=== PATIENT | female | born 1970 | race Hispanic/Latino ===

== ENCOUNTER 2019-02-19 11:38 | Emergency (ER) | payer OTHER ==
--- NOTE | 2019-02-19 11:45 | Emergency Department Report ---
Blank Doc - Documentation Documentation: This is a 48-year-old female that presents with right mandible swelling and to othache. This initial assessment/diagnostic orders/clinical plan/treatment(s) is/are subject to change based on patient's health status, clinical progression and re- assessment by fellow clinical providers in the ED. Further treatment and workup at subsequent clinical providers discretion. Patient/guardians urged not to elope from the ED as their condition may be serious if not clinically assessed and managed. Initial orders include: 1- Patient sent to [facility] for further evaluation and treatment 2- labs
[2019-02-19 13:00] LABS: Basophils # (Auto) 0.1 K/mm3 (0.0-0.1); Basophils % (Auto) 0.9 % (0.0-1.8); Eosinophils # (Auto) 0.1 K/mm3 (0.0-0.4); Eosinophils % (Auto) 0.7 % (0.0-4.3); Hematocrit 40.9 % (30.3-42.9); Hemoglobin 13.7 gm/dl (10.1-14.3); Lymphocytes # (Auto) 1.6 K/mm3 (1.2-5.4); Lymphocytes % (Auto) 17.6 % (13.4-35.0); Mean Corpuscular HGB Conc 34 % (30-34); Mean Corpuscular Volume 87 fl (79-97); Monocytes # (Auto) 0.4 K/mm3 (0.0-0.8); Monocytes % (Auto) 4.3 % (0.0-7.3); Platelet Count 194 K/mm3 (140-440); Red Blood Count 4.68 M/mm3 (3.65-5.03); Red Cell Distribution Width 16.4 % (13.2-15.2)
[2019-02-19] MEDS ORDERED: TORADOL IV ONE (13:01)
--- NOTE | 2019-02-19 13:07 | Emergency Department Report ---
ED ENT HPI - General Chief complaint: Dental/Oral Stated complaint: ABSCESS Time Seen by Provider: 02/19/19 11:43 Source: patient Mode of arrival: Ambulatory Limitations: No Limitations - History of Present Illness Initial comments: 48-year-old female presents to ED with toothache 3 days. Patient complaining of pain to his lower right molar, with associated swelling to the right jaw. Denies fever. MD complaint: tooth pain -: days(s) (3) Location: tooth # (32) Severity: moderate Quality: aching Consistency: constant Improves with: none Worsens with: eating Context- Dental: history of dental caries Associated Symptoms: denies: fever - Related Data Previous Rx's Medication Instructions Recorded Last Taken Type Ibuprofen [Motrin 800 MG tab] 800 mg PO Q8HR PRN #20 tablet 07/23/16 Unknown Rx Azithromycin [Zithromax Z-ELAINE] 250 mg PO DAILY #6 tablet 10/07/18 Unknown Rx Benzonatate [Tessalon Perle] 100 mg PO Q8H PRN #20 capsule 10/07/18 Unknown Rx Ibuprofen [Motrin] 600 mg PO Q8H PRN #20 tablet 10/07/18 Unknown Rx Prednisone [predniSONE 10 mg 10 mg PO .TAPER #1 tab.ds.pk 10/07/18 Unknown Rx (6-Day Pack, 21 Tabs)] Clindamycin [Clindamycin CAP] 300 mg PO Q8H 7 Days #21 cap 02/19/19 Unknown Rx Naproxen [Naprosyn] 500 mg PO BID #20 tablet 02/19/19 Unknown Rx traMADol [Ultram] 50 mg PO Q6HR PRN #7 tablet 02/19/19 Unknown Rx Allergies Allergy/AdvReac Type Severity Reaction Status Date / Time latex Allergy Rash Verified 08/26/14 12:52 ED Dental HPI - General Chief complaint: Dental/Oral Stated complaint: ABSCESS Time Seen by Provider: 02/19/19 11:43 Source: patient Mode of arrival: Ambulatory Limitations: No Limitations - Related Data Previous Rx's Medication Instructions Recorded Last Taken Type Ibuprofen [Motrin 800 MG tab] 800 mg PO Q8HR PRN #20 tablet 07/23/16 Unknown Rx Azithromycin [Zithromax Z-ELAINE] 250 mg PO DAILY #6 tablet 10/07/18 Unknown Rx Benzonatate [Tessalon Perle] 100 mg PO Q8H PRN #20 capsule 10/07/18 Unknown Rx Ibuprofen [Motrin] 600 mg PO Q8H PRN #20 tablet 10/07/18 Unknown Rx Prednisone [predniSONE 10 mg 10 mg PO .TAPER #1 tab.ds.pk 10/07/18 Unknown Rx (6-Day Pack, 21 Tabs)] Clindamycin [Clindamycin CAP] 300 mg PO Q8H 7 Days #21 cap 02/19/19 Unknown Rx Naproxen [Naprosyn] 500 mg PO BID #20 tablet 02/19/19 Unknown Rx traMADol [Ultram] 50 mg PO Q6HR PRN #7 tablet 02/19/19 Unknown Rx Allergies Allergy/AdvReac Type Severity Reaction Status Date / Time latex Allergy Rash Verified 08/26/14 12:52 ED Review of Systems ROS: Stated complaint: ABSCESS Other details as noted in HPI Comment: All other systems reviewed and negative Constitutional: denies: chills, fever ENT: dental pain ED Past Medical Hx - Past Medical History Previous Medical History?: Yes Hx Hypertension: Yes Hx CVA: No Hx Heart Attack/AMI: No Hx Congestive Heart Failure: No Hx Diabetes: No Hx Deep Vein Thrombosis: No Hx Pulmonary Embolism: No Hx GERD: No Hx Liver Disease: No Hx Renal Disease: No Hx Sickle Cell Disease: No Hx Arthritis: Yes Hx Headaches / Migraines: No Hx Seizures: No Hx Kidney Stones: No Hx Psychiatric Treatment: No Hx Asthma: No Hx COPD: No Hx Tuberculosis: No Hx Dementia: No Hx HIV: No Additional medical history: back pain,right knee pain - Surgical History Past Surgical History?: Yes Hx Coronary Stent: No Hx Open Heart Surgery: No Hx Pacemaker: No Hx Internal Defibrillator: No Hx Cholecystectomy: No Hx Appendectomy: No Hx Breast Surgery: No Additional Surgical History: 1991 - Social History Smoking Status: Current Every Day Smoker Substance Use Type: Alcohol - Medications Home Medications: Home Medications Medication Instructions Recorded Confirmed Last Taken Type Ibuprofen [Motrin 800 MG tab] 800 mg PO Q8HR PRN #20 tablet 07/23/16 Unknown Rx Azithromycin [Zithromax Z-ELAINE] 250 mg PO DAILY #6 tablet 10/07/18 Unknown Rx Benzonatate [Tessalon Perle] 100 mg PO Q8H PRN #20 capsule 10/07/18 Unknown Rx Ibuprofen [Motrin] 600 mg PO Q8H PRN #20 tablet 10/07/18 Unknown Rx Prednisone [predniSONE 10 mg 10 mg PO .TAPER #1 tab.ds.pk 10/07/18 Unknown Rx (6-Day Pack, 21 Tabs)] Clindamycin [Clindamycin CAP] 300 mg PO Q8H 7 Days #21 cap 02/19/19 Unknown Rx Naproxen [Naprosyn] 500 mg PO BID #20 tablet 02/19/19 Unknown Rx traMADol [Ultram] 50 mg PO Q6HR PRN #7 tablet 02/19/19 Unknown Rx ED Physical Exam - General Limitations: No Limitations General appearance: alert, in no apparent distress - Head Head exam: Present: atraumatic, normocephalic - Eye Eye exam: Present: normal appearance - ENT ENT exam: Present: other (tooth #32 tender to percussion, dental caries present; no elevation of tongue or induration beneath the tongue; no trismus present) - Neck Neck exam: Present: other (minimal swelling present to right mandible, no submandibular of submental induration) - Respiratory Respiratory exam: Present: normal lung sounds bilaterally. Absent: respiratory distress, stridor - Cardiovascular Cardiovascular Exam: Present: regular rate, normal rhythm - GI/Abdominal GI/Abdominal exam: Absent: distended - Extremities Exam Extremities exam: Present: normal inspection - Neurological Exam Neurological exam: Present: alert, oriented X3 - Psychiatric Psychiatric exam: Present: normal affect, normal mood - Skin Skin exam: Present: warm, dry, intact, normal color ED Course Vital Signs 02/19/19 02/19/19 02/19/19 11:39 14:15 16:36 Temperature 98.3 F Pulse Rate 74 58 L Respiratory 16 18 16 Rate Blood Pressure 140/69 Blood Pressure 137/72 [Left] O2 Sat by Pulse 95 98 Oximetry ED Medical Decision Making - Lab Data Result diagrams: 02/19/19 12:26 02/19/19 12:26 - Radiology Data Radiology results: report reviewed, image reviewed - Medical Decision Making - dental caries on exam, right lower molar tender to percussion - vitals normal, afebrile - minimal jaw swelling on exam - no trismus, no submental/submandibular induration, no elevation of tongue from floor of mouth; no signs of Jose's - inflammation vs phlegmon vs early abscess inner right mandible on CT - pt appears nontoxic; likely not abscess or Jose's given normal vitals, normal labs (normal WBCs) - IV clindamycin given, rx given for clindamycin - states has appt w/ her dentist on Sunday - return precautions given - Differential Diagnosis caries, abscess Critical care attestation.: If time is entered above; I have spent that time in minutes in the direct care of this critically ill patient, excluding procedure time. ED Disposition Clinical Impression: Dental caries, Dental abscess Disposition: TO HOME OR SELFCARE Is pt being admited?: No Condition: Stable Instructions: Dental Abscess (ED), Dental Caries (ED) Prescriptions: Clindamycin [Clindamycin CAP] 300 mg PO Q8H 7 Days #21 cap Naproxen [Naprosyn] 500 mg PO BID #20 tablet traMADol [Ultram] 50 mg PO Q6HR PRN #7 tablet PRN Reason: Pain Referrals: [facility] [Outside] - 3-5 Days Forms: Work/School Release Form(ED) Time of Disposition: 16:03
[2019-02-19 13:16] LABS: BUN/Creatinine Ratio 16; Blood Urea Nitrogen 8 mg/dL (7-17); Calcium 9.2 mg/dL (8.4-10.2); Hemolysis Index 3
--- NOTE | 2019-02-19 14:54 | Cat Scan Report ---
CT NECK WITH CONTRAST INDICATION: Toothache, jaw swollen. COMPARISON: None similar. FINDINGS: Neck CT with IV contrast demonstrates preserved parapharyngeal fat pads. Grossly normal pharynx, hypopharynx and the larynx. Normal size thyroid with few small hypodensities as 0.6 cm on the left, axial series 3, image 141. Aortic arch not included. Patent airway. Clear lung apices. Few neck lymph nodes noted as 1.5 cm level I right submental, axial image 109. Subtle inflammatory stranding along inner aspect of the right mandible as on axial image 97, series 3, amongst others also worrisome for an early, approximately 1.3 x 0.7 cm focus of infection/early abscess formation with very subtle peripheral wall enhancement possible. Few level II jugular chain lymph nodes on the right measure up to 1.1 cm as on axial image 98. Grossly patent major vessels. Dominant right jugular vein. Normal salivary glands. Rightward nasal septal deviation, axial image 51. Clear imaged paranasal sinuses and mastoid air cells. Normal eye globes. Normal imaged intracranial appearance. C5-C7 moderate degenerative spurring and possible disc narrowing. Edentulous maxilla. Slight periapical cyst/lucency around the left mandibular premolar also suspected, axial image 91. CONCLUSION: 1. Subtle inflammatory changes/phlegmon/early abscess suspected developing along the inner aspect of the mandible on the right with few adjacent lymph nodes in this patient with additional dental disease also suspected, as detailed above. Please correlate. 2. No other acute significant CT abnormality with various incidental findings, as above. Thank you for the opportunity to participate in this patient's care.
[2019-02-19] MEDS ORDERED: CLEOCIN 900 MG/50 mL 900 MG/50 ML BAG IV ONE (15:24)
[2019-02-19 16:37] VITALS: BP 137/72
== END 2019-02-19 16:38 | disposition home or self-care (01) ==
LOC: ED 11:38
DX: K02.9 Dental caries, unspecified (principal); K04.7 Periapical abscess without sinus; I10 Essential (primary) hypertension; F17.200 Nicotine dependence, unspecified, uncomplicated
CPT/HCPCS: 36415; 70491; 80048; 85025; 96365; 96375; 99284; J1885; Q9967

== ENCOUNTER 2021-01-08 13:08 | Emergency (ER) | payer SELFPAY ==
[2021-01-08 13:27] VITALS: BP 172/75
--- NOTE | 2021-01-08 14:48 | XRay Report ---
BILATERAL FEET, 6 VIEWS INDICATION / CLINICAL INFORMATION: fall, bilateral foot pain. COMPARISON: None available. FINDINGS: Right foot: There is dorsal soft tissue swelling in the region of the midfoot. Mild to moderate degen erative changes are seen in the great toe MTP joint. Small plantar calcaneal spur. No acute fracture or dislocation identified. Left foot: No fracture or dislocation. Small calcaneal spur noted. Mild soft tissue swelling noted al jose the dorsum of the midfoot. IMPRESSION: 1. Mild dorsal soft tissue swelling of the mid foot region bilaterally. 2. No acute fracture or dislocation. 3. Incidental finding of small plantar calcaneal spurs. Signer Name: Jocelyn Gomes MD Signed: 01/08/2021 2:44 PM Workstation Name: [id number]
--- NOTE | 2021-01-08 14:49 | XRay Report ---
RIGHT ANKLE, 4 VIEWS INDICATION / CLINICAL INFORMATION: fall, right ankle pain. COMPARISON: None available. FINDINGS: No fracture or dislocation. Mild diffuse soft tissue edema. Alignment is normal. No significant degen erative change. IMPRESSION: No acute fracture or dislocation. Mild diffuse soft tissue edema. Signer Name: Jocelyn Gomes MD Signed: 01/08/2021 2:45 PM Workstation Name: [id number]
[2021-01-08] MEDS ORDERED: traMADol 50 MG TAB PO ONE (14:56)
--- NOTE | 2021-01-08 15:38 | Emergency Department Report ---
ED Fall HPI - General Chief Complaint: Fall Stated Complaint: POSSIBLE FX LAVERNE FOOT/ANKLE Time Seen by Provider: 01/08/21 13:48 Source: patient Mode of arrival: Ambulatory - History of Present Illness Initial Comments: Patient is a 50-year-old female presents emergency room complaints of a fall that occurred earlier today. She states that she was going through her screen door and excellently tripped and fell. She states that her right ankle and foot had an eversion injury and she felt a pop. Patient states that she hit her left foot against the concrete. She denies any left ankle pain. She has been ambulatory. She denies any numbness or weakness. She is able to move the toes. She has a past medical history of arthritis and hypertension. - Related Data Previous Rx's Medication Instructions Recorded Last Taken Type Ibuprofen [Motrin 800 MG tab] 800 mg PO Q8HR PRN #20 tablet 07/23/16 Unknown Rx Azithromycin [Zithromax Z-ELAINE] 250 mg PO DAILY #6 tablet 10/07/18 Unknown Rx Benzonatate [Tessalon Perle] 100 mg PO Q8H PRN #20 capsule 10/07/18 Unknown Rx Ibuprofen [Motrin] 600 mg PO Q8H PRN #20 tablet 10/07/18 Unknown Rx Prednisone [predniSONE 10 mg 10 mg PO .TAPER #1 tab.ds.pk 10/07/18 Unknown Rx (6-Day Pack, 21 Tabs)] Clindamycin [Clindamycin CAP] 300 mg PO Q8H 7 Days #21 cap 02/19/19 Unknown Rx Naproxen [Naprosyn] 500 mg PO BID #20 tablet 02/19/19 Unknown Rx traMADoL [Ultram] 50 mg PO Q6HR PRN #7 tablet 02/19/19 Unknown Rx Naproxen 500 mg PO Q12H PRN #12 tablet 05/02/20 Unknown Rx Naproxen [EC-Naprosyn] 500 mg PO BID PRN #20 tablet 01/08/21 Unknown Rx traMADoL [Ultram 50 MG tab] 50 mg PO Q6HR PRN #10 tablet 01/08/21 Unknown Rx Allergies Allergy/AdvReac Type Severity Reaction Status Date / Time latex Allergy Rash Verified 05/02/20 13:00 ED Review of Systems ROS: Stated complaint: POSSIBLE FX LAVERNE FOOT/ANKLE Other details as noted in HPI Comment: All other systems reviewed and negative ED Past Medical Hx - Past Medical History Previous Medical History?: Yes Hx Hypertension: Yes Hx CVA: No Hx Heart Attack/AMI: No Hx Congestive Heart Failure: No Hx Diabetes: No Hx Deep Vein Thrombosis: No Hx Pulmonary Embolism: No Hx GERD: No Hx Liver Disease: No Hx Renal Disease: No Hx Sickle Cell Disease: No Hx Arthritis: Yes Hx Headaches / Migraines: No Hx Seizures: No Hx Kidney Stones: No Hx Psychiatric Treatment: No Hx Asthma: No Hx COPD: No Hx Tuberculosis: No Hx Dementia: No Hx HIV: No Additional medical history: back pain,right knee pain - Surgical History Past Surgical History?: Yes Hx Coronary Stent: No Hx Open Heart Surgery: No Hx Pacemaker: No Hx Internal Defibrillator: No Hx Cholecystectomy: No Hx Appendectomy: No Hx Breast Surgery: No Additional Surgical History: 1991 - Social History Smoking Status: Never Smoker Substance Use Type: None - Medications Home Medications: Home Medications Medication Instructions Recorded Confirmed Last Taken Type Ibuprofen [Motrin 800 MG tab] 800 mg PO Q8HR PRN #20 tablet 07/23/16 Unknown Rx Azithromycin [Zithromax Z-ELAINE] 250 mg PO DAILY #6 tablet 10/07/18 Unknown Rx Benzonatate [Tessalon Perle] 100 mg PO Q8H PRN #20 capsule 10/07/18 Unknown Rx Ibuprofen [Motrin] 600 mg PO Q8H PRN #20 tablet 10/07/18 Unknown Rx Prednisone [predniSONE 10 mg 10 mg PO .TAPER #1 tab.ds.pk 10/07/18 Unknown Rx (6-Day Pack, 21 Tabs)] Clindamycin [Clindamycin CAP] 300 mg PO Q8H 7 Days #21 cap 02/19/19 Unknown Rx Naproxen [Naprosyn] 500 mg PO BID #20 tablet 02/19/19 Unknown Rx traMADoL [Ultram] 50 mg PO Q6HR PRN #7 tablet 02/19/19 Unknown Rx Naproxen 500 mg PO Q12H PRN #12 tablet 05/02/20 Unknown Rx Naproxen [EC-Naprosyn] 500 mg PO BID PRN #20 tablet.dr 01/08/21 Unknown Rx traMADoL [Ultram 50 MG tab] 50 mg PO Q6HR PRN #10 tablet 01/08/21 Unknown Rx ED Physical Exam - General Limitations: No Limitations General appearance: alert, in no apparent distress - Head Head exam: Present: atraumatic, normocephalic - Eye Eye exam: Present: normal appearance - ENT ENT exam: Present: mucous membranes moist - Respiratory Respiratory exam: Absent: respiratory distress, accessory muscle use - Extremities Exam Extremities exam: Present: pedal edema (there is generalized non pitting edema of the BLE, no calf ttp, no skin changes, neurovascularly intact), other (ttp and mild edema present to the bilateral dorsal feet, mild ttp of the right ankle bilateral malleoli, no ttp of the digits, left ankle, bilateral knees, FROM of the BLE, mild discomfort with flexion of the right ankle, neurovascularly intact) - Neurological Exam Neurological exam: Present: alert, oriented X3 - Psychiatric Psychiatric exam: Present: normal affect, normal mood - Skin Skin exam: Present: warm, dry, intact ED Course Vital Signs 01/08/21 01/08/21 13:23 15:28 Temperature 98.8 F Pulse Rate 100 H Respiratory 16 18 Rate Blood Pressure 172/75 O2 Sat by Pulse 96 Oximetry ED Medical Decision Making - Lab Data Result diagrams: 01/08/21 14:58 01/08/21 14:58 Lab Results 01/08/21 01/08/21 Range/Units 14:58 14:58 WBC 9.7 (4.5-11.0) K/mm3 RBC 4.67 (3.65-5.03) M/mm3 Hgb 14.3 (10.1-14.3) gm/dl Hct 42.0 (30.3-42.9) % MCV 90 (79-97) fl MCH 31 (28-32) pg MCHC 34 (30-34) % RDW 13.9 (13.2-15.2) % Plt Count 182 (140-440) K/mm3 Lymph % (Auto) 19.6 (13.4-35.0) % [place] % (Auto) 5.2 (0.0-7.3) % Eos % (Auto) 1.8 (0.0-4.3) % Baso % (Auto) 0.6 (0.0-1.8) % Lymph # (Auto) 1.9 (1.2-5.4) K/mm3 [place] # (Auto) 0.5 (0.0-0.8) K/mm3 Eos # (Auto) 0.2 (0.0-0.4) K/mm3 Baso # (Auto) 0.1 (0.0-0.1) K/mm3 Seg Neutrophils % 72.8 H (40.0-70.0) % Seg Neutrophils # 7.1 (1.8-7.7) K/mm3 Sodium 139 (137-145) mmol/L Potassium 3.9 (3.6-5.0) mmol/L Chloride 100.1 (98-107) mmol/L Carbon Dioxide 33 H (22-30) mmol/L Anion Gap 10 mmol/L BUN 9 (7-17) mg/dL Creatinine 0.6 (0.6-1.2) mg/dL Estimated GFR > 60 ml/min BUN/Creatinine Ratio 15 % Glucose 97 (65-100) mg/dL Calcium 9.0 (8.4-10.2) mg/dL Total Bilirubin 0.40 (0.1-1.2) mg/dL AST 57 H (5-40) units/L ALT 96 H (7-56) units/L Alkaline Phosphatase 102 (35-129) units/L NT-Pro-B Natriuret Pep 141.5 (0-900) pg/mL Total Protein 7.0 (6.3-8.2) g/dL Albumin 3.9 (3.9-5) g/dL Albumin/Globulin Ratio 1.3 % Vital Signs 01/08/21 01/08/21 13:23 15:28 Temperature 98.8 F Pulse Rate 100 H Respiratory 16 18 Rate Blood Pressure 172/75 O2 Sat by Pulse 96 Oximetry - Radiology Data Radiology results: report reviewed Ordering Physician: LUCERO HERNANDEZ Date of Service: 01/08/21 Procedure(s): XR foot BILAT 3+V Accession Number(s): [id number] cc: LUCERO HERNANDEZ Fluoro Time In Minutes: BILATERAL FEET, 6 VIEWS INDICATION / CLINICAL INFORMATION: fall, bilateral foot pain. COMPARISON: None available. FINDINGS: Right foot: There is dorsal soft tissue swelling in the region of the midfoot. Mild to moderate degenerative changes are seen in the great toe MTP joint. Small plantar calcaneal spur. No acute fracture or dislocation identified. Left foot: No fracture or dislocation. Small calcaneal spur noted. Mild soft tissue swelling noted along the dorsum of the midfoot. IMPRESSION: 1. Mild dorsal soft tissue swelling of the mid foot region bilaterally. 2. No acute fracture or dislocation. 3. Incidental finding of small plantar calcaneal spurs. Signer Name: Jocelyn Gomes MD Signed: 01/08/2021 2:44 PM Workstation Name: [id number] Transcribed By: Dictated By: Jocelyn Gomes MD Electronically Authenticated By: Jocelyn Gomes MD Signed Date/Time: 01/08/211443 DD/ 40 TD/TT: Print Cancel Ordering Physician: LUCERO HERNANDEZ Date of Service: 01/08/21 Procedure(s): XR ankle 3+V RT Accession Number(s): [id number] cc: LUCERO HERNANDEZ Fluoro Time In Minutes: RIGHT ANKLE, 4 VIEWS INDICATION / CLINICAL INFORMATION: fall, right ankle pain. COMPARISON: None available. FINDINGS: No fracture or dislocation. Mild diffuse soft tissue edema. Alignment is normal. No significant degenerative change. IMPRESSION: No acute fracture or dislocation. Mild diffuse soft tissue edema. Signer Name: Jocelyn Gomes MD Signed: 01/08/2021 2:45 PM Workstation Name: [id number] Transcribed By: Dictated By: Jocelyn Gomes MD Electronically Authenticated By: Jocelyn Gomes MD Signed Date/Time: 01/08/211444 DD/ 43 TD/TT: Print - Medical Decision Making Patient is a 50-year-old female presents emergency room complaints of a fall that occurred earlier today. She states that she was going through her screen door and excellently tripped and fell. She states that her right ankle and foot had an eversion injury and she felt a pop. Patient states that she hit her left foot against the concrete. She denies any left ankle pain. She has been ambulatory. She denies any numbness or weakness. She is able to move the toes. She has a past medical history of arthritis and hypertension. Vitals are stable. On exam:ttp and mild edema present to the bilateral dorsal feet, mild ttp of the right ankle bilateral malleoli, no ttp of the digits, left ankle, bilateral knees, FROM of the BLE, mild discomfort with flexion of the right ankle, neurovascularly intact, there is generalized non pitting edema of the BLE, no calf ttp, no skin changes, neurovascularly intact. X-ray bilateral feet: 1. Mild dorsal soft tissue swelling of the mid foot region bilaterally. 2. No acute fracture or dislocation. 3. Incidental finding of small plantar calcaneal spurs. X-ray right ankle: IMPRESSION: No acute fracture or dislocation. Mild diffuse soft tissue edema. Labs with mildly elevated AST and ALT, otherwise labs are stable. Discussed all results with patient and answered questions. She has no clinical signs of DVT or arterial occlusion. Patient states that she has had this swelling in the past and it was related to her sodium intake. Patient's right ankle placed in Dinesh wrap by occupational therapy aide and remained neurovascular intact, given postop shoe for the right foot. Patient was given crutches which she states that she is not going to walk with crutches. Patient given prescription for naproxen and tramadol. Advised patient Please take medication as prescribed. Do not drive or operate machinery when taking severe pain medication. follow up with a primary care doctor. follow up with an orthopedic doctor. return to the emergency room for any new or worsening symptoms. Critical care attestation.: If time is entered above; I have spent that time in minutes in the direct care of this critically ill patient, excluding procedure time. ED Disposition Clinical Impression: Bilateral foot pain, Leg swelling, Elevated LFTs Right ankle pain Qualifiers: Chronicity: acute Qualified Code(s): M25.571 - Pain in right ankle and joints of right foot Disposition: DC- TO HOME OR SELFCARE Is pt being admited?: No Does the pt Need Aspirin: No Condition: Stable Instructions: Ankle Sprain Additional Instructions: Please take medication as prescribed. Do not drive or operate machinery when taking severe pain medication. follow up with a primary care doctor. follow up with an orthopedic doctor. return to the emergency room for any new or worsening symptoms. Prescriptions: Naproxen [EC-Naprosyn] 500 mg PO BID PRN #20 tablet.dr BONNER Reason: pain traMADoL [Ultram 50 MG tab] 50 mg PO Q6HR PRN #10 tablet PRN Reason: Pain , Severe (7-10) Referrals: PRIMARY CARE, [Primary Care Provider] - 2-3 Days [facility] [Provider Group] - 2-3 Days [facility], [LAB/CONTRACT] - 2-3 Days [facility] [Outside] - 2-3 Days EDITH CHAPMAN MD [Staff Physician] - 2-3 Days [facility] [Provider Group] - 2-3 Days Time of Disposition: 16:16 Print Language: THAI
[2021-01-08 15:43] LABS: Basophils # (Auto) 0.1 K/mm3 (0.0-0.1); Eosinophils # (Auto) 0.2 K/mm3 (0.0-0.4); Eosinophils % (Auto) 1.8 % (0.0-4.3); Hemoglobin 14.3 gm/dl (10.1-14.3); Lymphocytes # (Auto) 1.9 K/mm3 (1.2-5.4); Lymphocytes % (Auto) 19.6 % (13.4-35.0); Mean Corpuscular HGB Conc 34 % (30-34); Mean Corpuscular Volume 90 fl (79-97); Monocytes # (Auto) 0.5 K/mm3 (0.0-0.8); Monocytes % (Auto) 5.2 % (0.0-7.3); Platelet Count 182 K/mm3 (140-440); Red Blood Count 4.67 M/mm3 (3.65-5.03); Red Cell Distribution Width 13.9 % (13.2-15.2)
[2021-01-08 15:44] LABS: Basophils % (Auto) 0.6 % (0.0-1.8)
[2021-01-08 15:55] LABS: Alanine Aminotransferase 96 units/L (7-56); Albumin 3.9 g/dL (3.9-5); Blood Urea Nitrogen 9 mg/dL (7-17); Hemolysis Index 5
[2021-01-08 15:56] LABS: BUN/Creatinine Ratio 15
== END 2021-01-08 16:29 | disposition home or self-care (01) ==
LOC: ED 13:08
DX: M79.89 Other specified soft tissue disorders (principal); M25.571 Pain in right ankle and joints of right foot; M25.572 Pain in left ankle and joints of left foot; R79.89 Other specified abnormal findings of blood chemistry; I10 Essential (primary) hypertension; M19.90 Unspecified osteoarthritis, unspecified site; Z79.899 Other long term (current) drug therapy; Z91.040 Latex allergy status; Z98.890 Other specified postprocedural states
CPT/HCPCS: 36415; 80053; 83880; 85025

== ENCOUNTER 2021-08-18 13:11 | Outpatient (CLI) | payer OTHER ==
--- NOTE | 2021-08-18 14:23 | XRay Report ---
XR spine lumbosacral 2-3V INDICATION / CLINICAL INFORMATION: LOW BACK PAIN.. COMPARISON: None available. FINDINGS: BONES/JOINT(S): No acute fracture or subluxation. There is advanced disc height loss at L5-S1 with gr hitesh 1 anterolisthesis of at level due to chronic bilateral L5 pars defects. SOFT TISSUES: No significant abnormality. ADDITIONAL FINDINGS: None. Signer Name: North Fisher MD Signed: 08/18/2021 2:19 PM Workstation Name: [id number]
--- NOTE | 2021-08-18 15:52 | XRay Report ---
XR knees standing AP Bilateral INDICATION / CLINICAL INFORMATION: BILATERAL KNEE PAIN.. COMPARISON: None available. FINDINGS: No acute fracture. Normal alignment. Moderate right and left occipital changes of the knees with si gnificant joint space loss in the medial compartment.No destructive osseous lesion or suspicious koko osteal reaction. Impression: 1. Moderate osteoarthritis. Signer Name: Zachery Sebastian MD Signed: 08/18/2021 3:47 PM Workstation Name: [employer]
== END 2021-08-18 13:12 | disposition home or self-care (01) ==
LOC: XRAY 13:11
PROVIDERS: ATTEND Internal Medicine
DX: Z02.71 Encounter for disability determination (principal); M17.12 Unilateral primary osteoarthritis, left knee; M17.11 Unilateral primary osteoarthritis, right knee; M48.8X6 Other specified spondylopathies, lumbar region
CPT/HCPCS: 72100; 73565

== ENCOUNTER 2021-11-27 05:01 | Emergency (ER) | payer SELFPAY ==
[2021-11-27 06:03] LABS: Basophils # (Auto) 0.1 K/mm3 (0.0-0.1); Basophils % (Auto) 0.8 % (0.0-1.8); Eosinophils # (Auto) 0.1 K/mm3 (0.0-0.4); Eosinophils % (Auto) 1.3 % (0.0-4.3); Hematocrit 41.8 % (30.3-42.9); Hemoglobin 13.9 gm/dl (10.1-14.3); Lymphocytes # (Auto) 2.5 K/mm3 (1.2-5.4); Lymphocytes % (Auto) 24.8 % (13.4-35.0); Mean Corpuscular HGB Conc 33 % (30-34); Mean Corpuscular Volume 90 fl (79-97); Monocytes # (Auto) 0.6 K/mm3 (0.0-0.8); Monocytes % (Auto) 5.6 % (0.0-7.3); Platelet Count 189 K/mm3 (140-440); Red Blood Count 4.62 M/mm3 (3.65-5.03); Red Cell Distribution Width 13.8 % (13.2-15.2)
[2021-11-27 06:20] LABS: Blood Urea Nitrogen 18 mg/dL (7-17); Calcium 9.1 mg/dL (8.4-10.2); Hemolysis Index 4
[2021-11-27 06:21] LABS: BUN/Creatinine Ratio 30
[2021-11-27] MEDS ORDERED: oxyCODONE /ACETAMINOPHEN 5-325MG TAB PO ONE (06:23)
[2021-11-27] MEDS ORDERED: POTASSIUM CHLORIDE ER 20 MEQ TAB PO ONE (06:24)
[2021-11-27] MEDS ORDERED: atenoloL 25 MG TAB PO ONE (06:52)
--- NOTE | 2021-11-27 06:52 | Emergency Department Report ---
ED Psych HPI - General Chief Complaint: Psych Stated Complaint: HALLUCINATIONS Time Seen by Provider: 11/27/21 06:07 Source: patient, EMS Mode of arrival: Stretcher Limitations: No Limitations - History of Present Illness Initial Comments: 51-year-old female the past medical history of hypertension and chronic right knee pain presents to the hospital with complaints of psychosis/visual hallucination for the past 3 days. Patient initially with seeing people breaking into her car when she went to confront them there was no one there. Patient also having hallucinations that snakes are in the room, bugs are crawling on her, and she is seeing relatives. Patient even called the police to report a car breaking but realized that she was hallucinating after her sister confirmed that no one was there. Patient also complaining of a constant 9/10 frontal headache since this morning without focal weakness, numbness, blurred vision, nausea, or vomiting. Patient fell for 1 stairwell and transported by EMS and landed on her right lateral knee with increased pain. Patient takes Percocet 7.5 mg chronically as needed knee pain and she is intermi ttently compliant with her atenolol 25 mg daily for hypertension. Patient drinks alcohol on occasion but reports 2 months prior she was drinking 2-3 beers per evening. She denies illicit drug abuse or taking any other new medication. - Related Data Previous Rx's Medication Instructions Recorded Last Taken Type Ibuprofen [Motrin 800 MG tab] 800 mg PO Q8HR PRN #20 tablet 07/23/16 Unknown Rx Azithromycin [Zithromax Z-ELAINE] 250 mg PO DAILY #6 tablet 10/07/18 Unknown Rx Benzonatate [Tessalon Perle] 100 mg PO Q8H PRN #20 capsule 10/07/18 Unknown Rx Ibuprofen [Motrin] 600 mg PO Q8H PRN #20 tablet 10/07/18 Unknown Rx Prednisone [predniSONE 10 mg 10 mg PO .TAPER #1 tab.ds.pk 10/07/18 Unknown Rx (6-Day Pack, 21 Tabs)] Clindamycin [Clindamycin CAP] 300 mg PO Q8H 7 Days #21 cap 02/19/19 Unknown Rx Naproxen [Naprosyn] 500 mg PO BID #20 tablet 02/19/19 Unknown Rx traMADoL [Ultram] 50 mg PO Q6HR PRN #7 tablet 02/19/19 Unknown Rx Naproxen 500 mg PO Q12H PRN #12 tablet 05/02/20 Unknown Rx Naproxen [EC-Naprosyn] 500 mg PO BID PRN #20 tablet. 01/08/21 Unknown Rx traMADoL [Ultram 50 MG tab] 50 mg PO Q6HR PRN #10 tablet 01/08/21 Unknown Rx Allergies Allergy/AdvReac Type Severity Reaction Status Date / Time latex Allergy Rash Verified 05/02/20 13:00 ED Review of Systems ROS: Stated complaint: HALLUCINATIONS Other details as noted in HPI Comment: All other systems reviewed and negative ED Past Medical Hx - Past Medical History Hx Hypertension: Yes Hx CVA: No Hx Heart Attack/AMI: No Hx Congestive Heart Failure: No Hx Diabetes: No Hx Deep Vein Thrombosis: No Hx Pulmonary Embolism: No Hx GERD: No Hx Liver Disease: No Hx Renal Disease: No Hx Sickle Cell Disease: No Hx Arthritis: Yes Hx Headaches / Migraines: No Hx Seizures: No Hx Kidney Stones: No Hx Psychiatric Treatment: No Hx Asthma: No Hx COPD: No Hx Tuberculosis: No Hx Dementia: No Hx HIV: No Additional medical history: back pain,right knee pain - Surgical History Hx Coronary Stent: No Hx Open Heart Surgery: No Hx Pacemaker: No Hx Internal Defibrillator: No Hx Cholecystectomy: No Hx Appendectomy: No Hx Breast Surgery: No Additional Surgical History: 1991 - Social History Smoking Status: Never Smoker Substance Use Type: None - Medications Home Medications: Home Medications Medication Instructions Recorded Confirmed Last Taken Type Ibuprofen [Motrin 800 MG tab] 800 mg PO Q8HR PRN #20 tablet 07/23/16 Unknown Rx Azithromycin [Zithromax Z-ELAINE] 250 mg PO DAILY #6 tablet 10/07/18 Unknown Rx Benzonatate [Tessalon Perle] 100 mg PO Q8H PRN #20 capsule 10/07/18 Unknown Rx Ibuprofen [Motrin] 600 mg PO Q8H PRN #20 tablet 10/07/18 Unknown Rx Prednisone [predniSONE 10 mg 10 mg PO .TAPER #1 tab.ds.pk 10/07/18 Unknown Rx (6-Day Pack, 21 Tabs)] Clindamycin [Clindamycin CAP] 300 mg PO Q8H 7 Days #21 cap 02/19/19 Unknown Rx Naproxen [Naprosyn] 500 mg PO BID #20 tablet 02/19/19 Unknown Rx traMADoL [Ultram] 50 mg PO Q6HR PRN #7 tablet 02/19/19 Unknown Rx Naproxen 500 mg PO Q12H PRN #12 tablet 05/02/20 Unknown Rx Naproxen [EC-Naprosyn] 500 mg PO BID PRN #20 tablet. 01/08/21 Unknown Rx traMADoL [Ultram 50 MG tab] 50 mg PO Q6HR PRN #10 tablet 01/08/21 Unknown Rx ED Physical Exam - General Limitations: Altered Mental Status - Other Other exam information: General: No acute distress Head: Atraumatic Eyes: normal appearance ENT: Moist mucous membranes Neck: Normal appearance, no midline tenderness Chest: Clear to auscultation bilaterally CV: Regular rate and rhythm Abdomen: Soft, normal bowel sounds, nontender, nondistended, no rebound or guarding Back: Normal inspection Extremity: Anterior and lateral right knee tenderness palpation pain with flexion Neuro: Alert O x 3, no facial asymmetry, speech clear, no gross motor sensory deficit, [id number] function intact Psych: Appropriate behavior Skin: No rash ED Course Vital Signs 11/27/21 11/27/21 11/27/21 05:08 06:30 06:46 Temperature 98.0 F Pulse Rate 120 H 100 H 100 H Respiratory 18 22 24 Rate Blood Pressure 144/84 150/78 Blood Pressure 192/100 [Left] O2 Sat by Pulse 96 96 98 Oximetry 11/27/21 11/27/21 11/27/21 07:00 07:16 07:40 Temperature Pulse Rate 102 H 100 H Respiratory 24 21 Rate Blood Pressure Blood Pressure [Left] O2 Sat by Pulse 98 98 98 Oximetry 11/27/21 11/27/21 11/27/21 07:46 08:00 08:16 Temperature Pulse Rate 106 H 100 H 88 Respiratory 13 19 17 Rate Blood Pressure 150/80 150/80 150/80 Blood Pressure [Left] O2 Sat by Pulse 98 97 96 Oximetry ED Medical Decision Making - Lab Data Result diagrams: 11/27/21 05:38 11/27/21 05:38 Lab Results 11/27/21 11/27/21 11/27/21 Range/Units 05:38 05:38 05:38 WBC 10.0 (4.5-11.0) K/mm3 RBC 4.62 (3.65-5.03) M/mm3 Hgb 13.9 (10.1-14.3) gm/dl Hct 41.8 (30.3-42.9) % MCV 90 (79-97) fl MCH 30 (28-32) pg MCHC 33 (30-34) % RDW 13.8 (13.2-15.2) % Plt Count 189 (140-440) K/mm3 Lymph % (Auto) 24.8 (13.4-35.0) % Roane % (Auto) 5.6 (0.0-7.3) % Eos % (Auto) 1.3 (0.0-4.3) % Baso % (Auto) 0.8 (0.0-1.8) % Lymph # (Auto) 2.5 (1.2-5.4) K/mm3 Roane # (Auto) 0.6 (0.0-0.8) K/mm3 Eos # (Auto) 0.1 (0.0-0.4) K/mm3 Baso # (Auto) 0.1 (0.0-0.1) K/mm3 Seg Neutrophils % 67.5 (40.0-70.0) % Seg Neutrophils # 6.8 (1.8-7.7) K/mm3 Sodium 140 (137-145) mmol/L Potassium 3.3 L (3.6-5.0) mmol/L Chloride 103.3 (98-107) mmol/L Carbon Dioxide 24 (22-30) mmol/L Anion Gap 16 mmol/L BUN 18 H (7-17) mg/dL Creatinine 0.6 (0.6-1.2) mg/dL Estimated GFR > 60 ml/min BUN/Creatinine Ratio 30 % Glucose 116 H (65-100) mg/dL Calcium 9.1 (8.4-10.2) mg/dL Magnesium (1.7-2.3) mg/dL Urine Color (Yellow) Urine Turbidity (Clear) Urine pH (5.0-7.0) Ur Specific Dufur (1.003-1.030) Urine Protein (Negative) mg/dL Urine Glucose (UA) (Negative) mg/dL Urine Ketones (Negative) mg/dL Urine Blood (Negative) Urine Nitrite (Negative) Urine Bilirubin (Negative) Urine Urobilinogen (<2.0) mg/dL Ur Leukocyte Esterase (Negative) Urine WBC (Auto) (0.0-6.0) /HPF Urine RBC (Auto) (0.0-6.0) /HPF U Epithel Cells (Auto) (0-13.0) /HPF Urine Bacteria (Auto) (Negative) /HPF Hyaline Casts /LPF Urine Mucus /HPF Salicylates < 0.3 L (2.8-20.0) mg/dL Urine Opiates Screen Urine Methadone Screen Acetaminophen (10.0-30.0) ug/mL Ur Barbiturates Screen Ur Phencyclidine Scrn Ur Amphetamines Screen U Benzodiazepines Scrn Urine Cocaine Screen U Marijuana (THC) Screen Drugs of Abuse Note Plasma/Serum Alcohol (0-0.07) % Coronavirus (PCR) (Negative) 11/27/21 11/27/21 11/27/21 Range/Units 05:38 05:38 05:38 WBC (4.5-11.0) K/mm3 RBC (3.65-5.03) M/mm3 Hgb (10.1-14.3) gm/dl Hct (30.3-42.9) % MCV (79-97) fl MCH (28-32) pg MCHC (30-34) % RDW (13.2-15.2) % Plt Count (140-440) K/mm3 Lymph % (Auto) (13.4-35.0) % Roane % (Auto) (0.0-7.3) % Eos % (Auto) (0.0-4.3) % Baso % (Auto) (0.0-1.8) % Lymph # (Auto) (1.2-5.4) K/mm3 Roane # (Auto) (0.0-0.8) K/mm3 Eos # (Auto) (0.0-0.4) K/mm3 Baso # (Auto) (0.0-0.1) K/mm3 Seg Neutrophils % (40.0-70.0) % Seg Neutrophils # (1.8-7.7) K/mm3 Sodium (137-145) mmol/L Potassium (3.6-5.0) mmol/L Chloride (98-107) mmol/L Carbon Dioxide (22-30) mmol/L Anion Gap mmol/L BUN (7-17) mg/dL Creatinine (0.6-1.2) mg/dL Estimated GFR ml/min BUN/Creatinine Ratio % Glucose (65-100) mg/dL Calcium (8.4-10.2) mg/dL Magnesium 1.90 (1.7-2.3) mg/dL Urine Color (Yellow) Urine Turbidity (Clear) Urine pH (5.0-7.0) Ur Specific Dufur (1.003-1.030) Urine Protein (Negative) mg/dL Urine Glucose (UA) (Negative) mg/dL Urine Ketones (Negative) mg/dL Urine Blood (Negative) Urine Nitrite (Negative) Urine Bilirubin (Negative) Urine Urobilinogen (<2.0) mg/dL Ur Leukocyte Esterase (Negative) Urine WBC (Auto) (0.0-6.0) /HPF Urine RBC (Auto) (0.0-6.0) /HPF U Epithel Cells (Auto) (0-13.0) /HPF Urine Bacteria (Auto) (Negative) /HPF Hyaline Casts /LPF Urine Mucus /HPF Salicylates (2.8-20.0) mg/dL Urine Opiates Screen Urine Methadone Screen Acetaminophen 5.0 L (10.0-30.0) ug/mL Ur Barbiturates Screen Ur Phencyclidine Scrn Ur Amphetamines Screen U Benzodiazepines Scrn Urine Cocaine Screen U Marijuana (THC) Screen Drugs of Abuse Note Plasma/Serum Alcohol < 0.01 (0-0.07) % Coronavirus (PCR) (Negative) 11/27/21 11/27/21 11/27/21 Range/Units 13:33 13:33 Unknown WBC (4.5-11.0) K/mm3 RBC (3.65-5.03) M/mm3 Hgb (10.1-14.3) gm/dl Hct (30.3-42.9) % MCV (79-97) fl MCH (28-32) pg MCHC (30-34) % RDW (13.2-15.2) % Plt Count (140-440) K/mm3 Lymph % (Auto) (13.4-35.0) % Roane % (Auto) (0.0-7.3) % Eos % (Auto) (0.0-4.3) % Baso % (Auto) (0.0-1.8) % Lymph # (Auto) (1.2-5.4) K/mm3 Roane # (Auto) (0.0-0.8) K/mm3 Eos # (Auto) (0.0-0.4) K/mm3 Baso # (Auto) (0.0-0.1) K/mm3 Seg Neutrophils % (40.0-70.0) % Seg Neutrophils # (1.8-7.7) K/mm3 Sodium (137-145) mmol/L Potassium (3.6-5.0) mmol/L Chloride (98-107) mmol/L Carbon Dioxide (22-30) mmol/L Anion Gap mmol/L BUN (7-17) mg/dL Creatinine (0.6-1.2) mg/dL Estimated GFR ml/min BUN/Creatinine Ratio % Glucose (65-100) mg/dL Calcium (8.4-10.2) mg/dL Magnesium (1.7-2.3) mg/dL Urine Color Vika (Yellow) Urine Turbidity Slightly-cloudy (Clear) Urine pH 6.0 (5.0-7.0) Ur Specific Dufur 1.020 (1.003-1.030) Urine Protein 30 mg/dl (Negative) mg/dL Urine Glucose (UA) Neg (Negative) mg/dL Urine Ketones Neg (Negative) mg/dL Urine Blood Sm (Negative) Urine Nitrite Neg (Negative) Urine Bilirubin Neg (Negative) Urine Urobilinogen 4.0 (<2.0) mg/dL Ur Leukocyte Esterase Neg (Negative) Urine WBC (Auto) 4.0 (0.0-6.0) /HPF Urine RBC (Auto) 11.0 (0.0-6.0) /HPF U Epithel Cells (Auto) 14.0 H (0-13.0) /HPF Urine Bacteria (Auto) 1+ (Negative) /HPF Hyaline Casts 1 /LPF Urine Mucus 1+ /HPF Salicylates (2.8-20.0) mg/dL Urine Opiates Screen Negative Urine Methadone Screen Negative Acetaminophen (10.0-30.0) ug/mL Ur Barbiturates Screen Negative Ur Phencyclidine Scrn Negative Ur Amphetamines Screen Positive U Benzodiazepines Scrn Positive Urine Cocaine Screen Negative U Marijuana (THC) Screen Negative Drugs of Abuse Note Disclamer Plasma/Serum Alcohol (0-0.07) % Coronavirus (PCR) Negative (Negative) - Radiology Data Radiology results: report reviewed RIGHT KNEE 3 VIEW(S) INDICATION / CLINICAL INFORMATION: fall, rt knee pain COMPARISON: Right knee 07/23/2016 FINDINGS: BONES / JOINT(S): No acute fracture or subluxation. Moderately advanced tricompartmental osteoarthritis is present minimal narrowing of medial joint space. No development of sclerotic lesion proximal tibial metaphysis with fairly well-defined margins. No obvious internal matrix. SOFT TISSUES: No significant abnormality. ADDITIONAL FINDINGS: None. IMPRESSION: 1. Moderately advanced tricompartmental osteoarthrosis. 2. New intramedullary bone lesion within the proximal right tibial metaphysis. Differential considerations include fibrous dysplasia, atypical enchondroma, bone cyst, metastatic disease, and sequelae of infection. CT HEAD WITHOUT CONTRAST INDICATION / CLINICAL INFORMATION: frontal headache, new onset psychosis. TECHNIQUE: All CT scans at this location are performed using CT dose reduction for ALARA by means of automated exposure control. COM PARISON: None available. FINDINGS: HEMORRHAGE: None. EXTRA-AXIAL SPACES: Normal in size and morphology for the patient's age. VENTRICULAR SYSTEM: Normal in size and morphology for the patient's age. CEREBRAL PARENCHYMA: No significant abnormality. No acute territorial infarct. MIDLINE SHIFT / HERNIATION: None. CEREBELLUM / BRAINSTEM: No significant abnormality. ORBITS: Normal as visualized. SOFT TISSUES: No significant abnormality. SKULL: No significant abnormality. PARANASAL SINUSES / MASTOID AIR CELLS: Normal as visualized. ADDITIONAL FINDINGS: None. IMPRESSION: 1. No acute intracranial abnormality. - Medical Decision Making Patient evaluated by [facility] and deemed not a 1013 candidate. UDS positive for amphetamines and benzos despite patient's insistence of not using drugs. Patient recommended to be discharged with outpatient follow-up. Outpatient follow-up for right knee would be advised. CT head unremarkable Critical Care Time: No Critical care attestation.: If time is entered above; I have spent that time in minutes in the direct care of this critically ill patient, excluding procedure time. ED Disposition Clinical Impression: Acute psychosis, Arthritis of knee, right, Lesion of bone of knee, Positive urine drug screen Disposition: HOME / SELF CARE / HOMELESS Is pt being admited?: No Does the pt Need Aspirin: No Condition: Stable Instructions: Osteoarthritis, Psychosis, Substance Use Disorder and Mental Ill ness Additional Instructions: Continue current medication. Follow-up with outpatient resources provided. Follow-up with orthopedic doctor regarding your abnormal knee x-ray Professional and Agency Contacts To help [facility] (14/05) [place] Crisis Line: Suicide Prevention Line: Crisis Text Line: Text ``START to 543973 Emergency: 911 Outpatient COMMUNITY Behavioral Health Resources: DAMIONB: [facility] [address] [place], [place] [address] RUPERT: [facility] [address] [place] [address] Sunday thru Sunday - 8am - 5pm Call to schedule an assessment for mental health and substance abuse programs MAHENDRA: [facility] Address: [address] [place] [address] Sunday thru Sunday- 7am-2pm [facility] Address: [address] [place] [address] Sunday thru Sunday: 8:30AM-5PM SUBSTANCE ABUSE PROGRAMS: [facility]: Location: [place], [place] [facility] Address: [address] [place] [address] [facility] Recovery: Address: [address] [place] [id number] [facility] Adult Rehabilitation: Address: [address] [place] [address] [facility] Community: Address: [address] [place] [address] Referrals: PRIMARY MD ARACELI [Primary Care Provider] - 3-5 Days EDITH CHAPMAN MD [Staff Physician] - 3-5 Days Time of Disposition: 16:04
--- NOTE | 2021-11-27 08:06 | Cat Scan Report ---
CT HEAD WITHOUT CONTRAST INDICATION / CLINICAL INFORMATION: frontal headache, new onset psychosis. TECHNIQUE: All CT scans at this location are performed using CT dose reduction for ALARA by means of automated exposure control. COMPARISON: None available. FINDINGS: HEMORRHAGE: None. EXTRA-AXIAL SPACES: Normal in size and morphology for the patient's age. VENTRICULAR SYSTEM: Normal in size and morphology for the patient's age. CEREBRAL PARENCHYMA: No significant abnormality. No acute territorial infarct. MIDLINE SHIFT / HERNIATION: None. CEREBELLUM / BRAINSTEM: No significant abnormality. ORBITS: Normal as visualized. SOFT TISSUES: No significant abnormality. SKULL: No significant abnormality. PARANASAL SINUSES / MASTOID AIR CELLS: Normal as visualized. ADDITIONAL FINDINGS: None. IMPRESSION: 1. No acute intracranial abnormality. Signer Name: Sulma Dunne MD Signed: 11/27/2021 8:02 AM Workstation Name: [id number]
[2021-11-27 14:06] LABS: Bacteria,Urine 1+ /HPF (Negative); Bilirubin,Urine NEG (Negative); Blood,Urine SM (Negative); Color,Urine Amber (Yellow); Hyaline Casts,Urine 1 /LPF; Mucus,Urine 1+ /HPF
[2021-11-27 14:14] LABS: Cannabinoid Screen,Urine Negative; Cocaine Screen,Urine Negative; Methadone Screen,Urine Negative; Opiate Screen,Urine Negative
--- NOTE | 2021-11-27 14:23 | Consultation ---
History of Present Illness - Reason for Consult Consult date: 11/27/21 Reason for consult: psychosis - History of Present Psychiatric Illness ED Note: 51-year-old female the past medical history of hypertension and chronic right knee pain presents to the hospital with complaints of psychosis/visual hallucination for the past 3 days. Patient initially with seeing people breaking into her car when she went to confront them there was no one there. Patient also having hallucinations that snakes are in the room, bugs are crawling on her, and she is seeing relatives. Patient even called the police to report a car breaking but realized that she was hallucinating after her sister confirmed that no one was there. Patient also complaining of a constant 9/10 frontal headache since this morning without focal weakness, numbness, blurred vision, nausea, or vomiting. Patient fell for 1 stairwell and transported by EMS and landed on her right lateral knee with increased pain. Patient takes Percocet 7.5 mg chronically as needed knee pain and she is intermittently compliant with her atenolol 25 mg daily for hypertension. Patient drinks alcohol on occasion but reports 2 months prior she was drinking 2-3 beers per evening. She denies illicit drug abuse or taking any other new medication. The patient is a 51 year old female with no psychiatric history. In my interview with the patient, she reports that "she was sick with cold" that started last , reports having nausea and vomiting. The patient reports that she thought someone was trying to steal her car but her sister confirmed that there was no one there. 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 The patient denies being paranoid, denies depression and denies feeling excessively anxious. She denies illicit drug but states she uses alcohol occasional, however, UDS is positive for amphetamine and benzos. The patient denies any current suicidal/homicidal ideation and denies hallucinations. 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 Cooperation: Participating/engaged Psychomotor Behavior: unremarkable and within normal limits Mood: anxious Affect and affective range: congruent with mood Thought Process: Goal directed Thought Content: Denies Speech: Normal volume, Regular rate and rhythm Intellectual Functioning: Average Suicidal Ideation: Denies Homicidal Ideation: Denies Hallucinations: Denies Impulse Control: Unimpaired Insight and Judgment: Normal insight and judgment Memory: Normal Attention: Divided Orientation: Alert, oriented Assessment and Plan (1) Unspecified mood (2) Current Visit: Yes Status: Acute RECOMMENDATIONS continue home meds. Risks, benefits and alternatives of medications discussed with the patient, questions answered and consent obtained from patient. PSYCHOTHERAPY: Supportive psychotherapy provided MEDICAL: Per primary team DELIRIUM PRECAUTIONS: Please re-orient patient frequently, keep lights on during the day, and minimize benzodiazepines and opiates as these medications could worsen patient's confusion. 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 [facility] [employer] Department Manager will provide patient with psychiatric outpatient resources FOLLOW-UP: Will sign off. Thank you for the consult. Please contact with any questions and/or concerns. Medications and Allergies Allergies Allergy/AdvReac Type Severity Reaction Status Date / Time latex Allergy Rash Verified 05/02/20 13:00 Home Medications Medication Instructions Recorded Confirmed Last Taken Type Ibuprofen [Motrin 800 MG tab] 800 mg PO Q8HR PRN #20 tablet 07/23/16 Unknown Rx Azithromycin [Zithromax Z-ELAINE] 250 mg PO DAILY #6 tablet 10/07/18 Unknown Rx Benzonatate [Tessalon Perle] 100 mg PO Q8H PRN #20 capsule 10/07/18 Unknown Rx Ibuprofen [Motrin] 600 mg PO Q8H PRN #20 tablet 10/07/18 Unknown Rx Prednisone [predniSONE 10 mg 10 mg PO .TAPER #1 tab.ds.pk 10/07/18 Unknown Rx (6-Day Pack, 21 Tabs)] Clindamycin [Clindamycin CAP] 300 mg PO Q8H 7 Days #21 cap 02/19/19 Unknown Rx Naproxen [Naprosyn] 500 mg PO BID #20 tablet 02/19/19 Unknown Rx traMADoL [Ultram] 50 mg PO Q6HR PRN #7 tablet 02/19/19 Unknown Rx Naproxen 500 mg PO Q12H PRN #12 tablet 05/02/20 Unknown Rx Naproxen [EC-Naprosyn] 500 mg PO BID PRN #20 tablet. 01/08/21 Unknown Rx traMADoL [Ultram 50 MG tab] 50 mg PO Q6HR PRN #10 tablet 01/08/21 Unknown Rx Active Meds: Active Medications Atenolol (Atenolol 25 Mg Tab) 25 mg PO QDAY [facility] Mental Status Exam - Vital signs Last Vital Signs Temp 98.0 F 11/27/21 05:08 Pulse 88 11/27/21 08:16 Resp 17 11/27/21 08:16 BP 150/80 11/27/21 08:16 Pulse Ox 96 11/27/21 08:16 Results Result Diagrams: 11/27/21 05:38 11/27/21 05:38 Abnormal lab results 11/27/21 11/27/21 11/27/21 Range/Units 05:38 05:38 05:38 Potassium 3.3 L (3.6-5.0) mmol/L BUN 18 H (7-17) mg/dL Glucose 116 H (65-100) mg/dL U Epithel Cells (Auto) (0-13.0) /HPF Salicylates < 0.3 L (2.8-20.0) mg/dL Acetaminophen 5.0 L (10.0-30.0) ug/mL 11/27/21 Range/Units 13:33 Potassium (3.6-5.0) mmol/L BUN (7-17) mg/dL Glucose (65-100) mg/dL U Epithel Cells (Auto) 14.0 H (0-13.0) /HPF Salicylates (2.8-20.0) mg/dL Acetaminophen (10.0-30.0) ug/mL All other labs normal.
[2021-11-27 14:27] LABS: Amphetamine Screen,Urine Positive; Benzodiazepines Screen,Urine Positive
[2021-11-27 17:43] VITALS: BP 143/78
[2021-11-28] MEDS ORDERED: atenoloL 25 MG TAB PO SCH (10:00)
--- NOTE | 2021-11-29 15:13 | XRay Report ---
RIGHT KNEE 3 VIEW(S) INDICATION / CLINICAL INFORMATION: fall, rt knee pain COMPARISON: Right knee 07/23/2016 FINDINGS: BONES / JOINT(S): No acute fracture or subluxation. Moderately advanced tricompartmental osteoarthrit is is present minimal narrowing of medial joint space. No development of sclerotic lesion proximal ti bial metaphysis with fairly well-defined margins. No obvious internal matrix. SOFT TISSUES: No significant abnormality. ADDITIONAL FINDINGS: None. IMPRESSION: 1. Moderately advanced tricompartmental osteoarthrosis. 2. New intramedullary bone lesion within the proximal right tibial metaphysis. Differential considera tions include fibrous dysplasia, atypical enchondroma, bone cyst, metastatic disease, and sequelae of infection. Signer Name: Jose Thomas II, MD Signed: 11/27/2021 7:07 AM Workstation Name: [id number]
== END 2021-11-27 17:43 | disposition home or self-care (01) ==
LOC: ED 05:01
DX: F29 Unspecified psychosis not due to a substance or known physiological condition (principal); M17.9 Osteoarthritis of knee, unspecified; R82.5 Elevated urine levels of drugs, medicaments and biological substances; Z91.040 Latex allergy status; Z20.822 Contact with and (suspected) exposure to COVID-19; Z79.899 Other long term (current) drug therapy
CPT/HCPCS: 36415; 70450; 73562; 80048; 80307; 81001; 83735; 85025; 99285; U0003; 80320; G0480

== ENCOUNTER 2021-11-27 23:38 | Emergency (ER) | payer SELFPAY ==
--- NOTE | 2021-11-27 23:49 | Emergency Department Report ---
ED Psych HPI - General Chief Complaint: Psych Stated Complaint: HALLUCINATIONS Time Seen by Provider: 11/27/21 23:39 Source: patient, EMS Mode of arrival: Stretcher Limitations: No Limitations - History of Present Illness Initial Comments: Chief complaint: "I got into it with my sister again. She did not plan on me coming home so soon." HPI: This 51-year-old female with history of osteoarthritis of the knee, hypertension who presents with request for therapy. She stated that she had a verbal argument with her sister today. Her sister was not appropriate for her to come home. She states that she sees snakes. She denies suicidal or homicidal ideation. I reviewed mental health consultation note. Patient was diagnosed with unspecified mood disorder. MD Complaint: other (Visual hallucinations of snakes) -: Gradual (Several days) Associated Psychiatric Symptoms: none Quality: constant Improves With: none Worsens With: none Context: not taking psychiatric Associated Symptoms: other (Chronic knee pain) Treatments Prior to Arrival: other (Evaluated today by psychiatric team evaluated by ED colleague.) - Related Data Previous Rx's Medication Instructions Recorded Last Taken Type Ibuprofen [Motrin 800 MG tab] 800 mg PO Q8HR PRN #20 tablet 07/23/16 Unknown Rx Azithromycin [Zithromax Z-ELAINE] 250 mg PO DAILY #6 tablet 10/07/18 Unknown Rx Benzonatate [Tessalon Perle] 100 mg PO Q8H PRN #20 capsule 10/07/18 Unknown Rx Ibuprofen [Motrin] 600 mg PO Q8H PRN #20 tablet 10/07/18 Unknown Rx Prednisone [predniSONE 10 mg 10 mg PO .TAPER #1 tab.ds.pk 10/07/18 Unknown Rx (6-Day Pack, 21 Tabs)] Clindamycin [Clindamycin CAP] 300 mg PO Q8H 7 Days #21 cap 02/19/19 Unknown Rx Naproxen [Naprosyn] 500 mg PO BID #20 tablet 02/19/19 Unknown Rx traMADoL [Ultram] 50 mg PO Q6HR PRN #7 tablet 02/19/19 Unknown Rx Naproxen 500 mg PO Q12H PRN #12 tablet 05/02/20 Unknown Rx Naproxen [EC-Naprosyn] 500 mg PO BID PRN #20 01/08/21 Unknown Rx traMADoL [Ultram 50 MG tab] 50 mg PO Q6HR PRN #10 tablet 01/08/21 Unknown Rx Allergies Allergy/AdvReac Type Severity Reaction Status Date / Time latex Allergy Rash Verified 05/02/20 13:00 ED Review of Systems ROS: Stated complaint: HALLUCINATIONS Other details as noted in HPI Comment: All other systems reviewed and negative Constitutional: denies: fever, malaise Respiratory: denies: cough, shortness of breath Cardiovascular: denies: chest pain Gastrointestinal: denies: abdominal pain, nausea, vomiting ED Past Medical Hx - Past Medical History Previous Medical History?: Yes Hx Hypertension: Yes Hx CVA: No Hx Heart Attack/AMI: No Hx Congestive Heart Failure: No Hx Diabetes: No Hx Deep Vein Thrombosis: No Hx Pulmonary Embolism: No Hx GERD: No Hx Liver Disease: No Hx Renal Disease: No Hx Sickle Cell Disease: No Hx Arthritis: Yes Hx Headaches / Migraines: No Hx Seizures: No Hx Kidney Stones: No Hx Psychiatric Treatment: No Hx Asthma: No Hx COPD: No Hx Tuberculosis: No Hx Dementia: No Hx HIV: No Additional medical history: back pain,right knee pain - Surgical History Past Surgical History?: Yes Hx Coronary Stent: No Hx Open Heart Surgery: No Hx Pacemaker: No Hx Internal Defibrillator: No Hx Cholecystectomy: No Hx Appendectomy: No Hx Breast Surgery: No Additional Surgical History: 1991 - Social History Smoking Status: Never Smoker Substance Use Type: None - Medications Home Medications: Home Medications Medication Instructions Recorded Confirmed Last Taken Type Ibuprofen [Motrin 800 MG tab] 800 mg PO Q8HR PRN #20 tablet 07/23/16 Unknown Rx Azithromycin [Zithromax Z-ELAINE] 250 mg PO DAILY #6 tablet 10/07/18 Unknown Rx Benzonatate [Tessalon Perle] 100 mg PO Q8H PRN #20 capsule 10/07/18 Unknown Rx Ibuprofen [Motrin] 600 mg PO Q8H PRN #20 tablet 10/07/18 Unknown Rx Prednisone [predniSONE 10 mg 10 mg PO .TAPER #1 tab.ds.pk 10/07/18 Unknown Rx (6-Day Pack, 21 Tabs)] Clindamycin [Clindamycin CAP] 300 mg PO Q8H 7 Days #21 cap 02/19/19 Unknown Rx Naproxen [Naprosyn] 500 mg PO BID #20 tablet 02/19/19 Unknown Rx traMADoL [Ultram] 50 mg PO Q6HR PRN #7 tablet 02/19/19 Unknown Rx Naproxen 500 mg PO Q12H PRN #12 tablet 05/02/20 Unknown Rx Naproxen [EC-Naprosyn] 500 mg PO BID PRN #20 tablet. 01/08/21 Unknown Rx traMADoL [Ultram 50 MG tab] 50 mg PO Q6HR PRN #10 tablet 01/08/21 Unknown Rx ED Physical Exam - General Limitations: No Limitations General appearance: alert, in no apparent distress - Head Head exam: Present: atraumatic, normocephalic - Eye Eye exam: Present: normal appearance - ENT ENT exam: Present: mucous membranes moist - Neck Neck exam: Present: normal inspection, full ROM - Respiratory Respiratory exam: Present: normal lung sounds bilaterally. Absent: respiratory distress, wheezes, rales, rhonchi - Cardiovascular Cardiovascular Exam: Present: regular rate, normal rhythm. Absent: systolic murmur, diastolic murmur, rubs, gallop - GI/Abdominal GI/Abdominal exam: Present: soft, normal bowel sounds - Extremities Exam Extremities exam: Present: normal inspection - Back Exam Back exam: Present: normal inspection - Neurological Exam Neurological exam: Present: alert, oriented X3 - Psychiatric Psychiatric exam: Present: normal affect, normal mood. Absent: anxious, flat affect, manic, homicidal ideation, suicidal ideation - Skin Skin exam: Present: warm, dry, intact, normal color. Absent: rash ED Course Vital Signs 11/27/21 11/28/21 23:48 05:06 Temperature 97.8 F 98.5 F Pulse Rate 74 101 H Respiratory 16 18 Rate Blood Pressure 156/104 145/71 [Left] O2 Sat by Pulse 98 94 Oximetry ED Medical Decision Making - Lab Data Result diagrams: 11/27/21 23:58 11/27/21 23:58 - Medical Decision Making This is a 51-year-old female who presents with visual hallucinations of seeing snakes. She does not appear to be responding to internal stimuli. She has good eye contact. She appears calm. She appears to have appropriate mood. I am concerned for substance-induced psychosis versus malingering versus conversion disorder. Patient does not appear to be a harm to herself or others. Visual hallucinations does not appear to cause her any distress depression or anxiety. I reviewed UDS obtained earlier today. UDS positive for benzodiazepine and amphetamines. Awaiting recommendation by psychiatric team. Patient is medically clear for psychiatric care. Repeat urine tox screen positive for amphetamines, nonspecific leukocytosis without evidence of infection. Critical care attestation.: If time is entered above; I have spent that time in minutes in the direct care of this critically ill patient, excluding procedure time. ED Disposition Clinical Impression: Mood disorder Disposition: 30 STILL A PATIENT Is pt being admited?: No Does the pt Need Aspirin: No Condition: Stable
[2021-11-28 00:23] LABS: Hematocrit 44.8 % (30.3-42.9); Hemoglobin 14.6 gm/dl (10.1-14.3); Mean Corpuscular HGB Conc 33 % (30-34); Mean Corpuscular Volume 91 fl (79-97); Platelet Count 250 K/mm3 (140-440); Red Blood Count 4.96 M/mm3 (3.65-5.03); Red Cell Distribution Width 13.5 % (13.2-15.2)
[2021-11-28] MEDS ORDERED: LORazepam 2 MG/ML VIAL IV ONE (00:25)
[2021-11-28 00:30] LABS: Bacteria,Urine 1+ /HPF (Negative); Bilirubin,Urine NEG (Negative); Blood,Urine NEG (Negative); Color,Urine Yellow (Yellow); Mucus,Urine 2+ /HPF
[2021-11-28 00:37] LABS: Amphetamine Screen,Urine PRESUMPTIVE POSITIVE; Benzodiazepines Screen,Urine PRESUMPTIVE NEGATIVE; Cannabinoid Screen,Urine PRESUMPTIVE NEGATIVE; Cocaine Screen,Urine PRESUMPTIVE NEGATIVE; Methadone Screen,Urine PRESUMPTIVE NEGATIVE; Opiate Screen,Urine PRESUMPTIVE NEGATIVE
[2021-11-28 01:41] LABS: BUN/Creatinine Ratio 26; Blood Urea Nitrogen 18 mg/dL (7-17); Calcium 9.9 mg/dL (8.4-10.2); Hemolysis Index 11
[2021-11-28 01:56] LABS: Anisocytosis 1+; Basophils % (Manual) 0 % (0.0-1.8); Eosinophils % (Manual) 0 % (0.0-4.3); Platelet Estimate Consistent w Auto; Total Cells Counted 100
[2021-11-28] MEDS ORDERED: ZIPRASIDONE MESYLATE 20 MG VIAL IM ONE (07:57)
--- NOTE | 2021-11-28 10:08 | Consultation ---
History of Present Illness - Reason for Consult Consult date: 11/28/21 Reason for consult: Psychosis - History of Present Psychiatric Illness The patient is a 51 year old female with no psychiatric history. In my interview with the patient, she reports that "she was sick with cold" that started last , reports having nausea and vomiting. The patient reports that she thought someone was trying to steal her car but her sister confirmed that there was no one there. 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 The patient denies being paranoid, denies depression and denies feeling excessively anxious. She denies illicit drug but states she uses alcohol occasional, however, UDS is positive for amphetamine and benzos. The patient denies any current suicidal/homicidal ideation and denies hallucinations. The patient was discharged yesterday, this morning the patient presents with disorganized thoughts and flight of ideas. The patient is pacing and going into the rooms. Ordered Geodon 20mg IM x1. 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 Cooperation: Participating Psychomotor Behavior: abnormal Mood: anxious/ agitated Affect and affective range: congruent with mood Thought Process: Tangential Thought Content: flight of ideas and disorganized thoughts Speech: Normal volume, Regular rate and rhythm Intellectual Functioning: Average Suicidal Ideation: Denies Homicidal Ideation: Denies Hallucinations: Denies Impulse Control: Unimpaired Insight and Judgment: Limited insight and judgment Memory: Attention: Divided Orientation: Alert, oriented Assessment and Plan (1) Delirium (2) Current Visit: Yes Status: Acute RECOMMENDATIONS 1013 continue home meds. Risks, benefits and alternatives of medications discussed with the patient, questions answered and consent obtained from patient. PSYCHOTHERAPY: Supportive psychotherapy provided MEDICAL: Per primary team DELIRIUM PRECAUTIONS: Please re-orient patient frequently, keep lights on during the day, and minimize benzodiazepines and opiates as these medications could worsen patient's confusion. 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 FOLLOW-UP: Will follow. Thank you for the consult. Please contact with any questions and/or concerns. Medications and Allergies Allergies Allergy/AdvReac Type Severity Reaction Status Date / Time latex Allergy Rash Verified 05/02/20 13:00 Home Medications Medication Instructions Recorded Confirmed Last Taken Type Ibuprofen [Motrin 800 MG tab] 800 mg PO Q8HR PRN #20 tablet 07/23/16 Unknown Rx Azithromycin [Zithromax Z-ELAINE] 250 mg PO DAILY #6 tablet 10/07/18 Unknown Rx Benzonatate [Tessalon Perle] 100 mg PO Q8H PRN #20 capsule 10/07/18 Unknown Rx Ibuprofen [Motrin] 600 mg PO Q8H PRN #20 tablet 10/07/18 Unknown Rx Prednisone [predniSONE 10 mg 10 mg PO .TAPER #1 tab.ds.pk 10/07/18 Unknown Rx (6-Day Pack, 21 Tabs)] Clindamycin [Clindamycin CAP] 300 mg PO Q8H 7 Days #21 cap 02/19/19 Unknown Rx Naproxen [Naprosyn] 500 mg PO BID #20 tablet 02/19/19 Unknown Rx traMADoL [Ultram] 50 mg PO Q6HR PRN #7 tablet 02/19/19 Unknown Rx Naproxen 500 mg PO Q12H PRN #12 tablet 05/02/20 Unknown Rx Naproxen [EC-Naprosyn] 500 mg PO BID PRN #20 tablet. 01/08/21 Unknown Rx traMADoL [Ultram 50 MG tab] 50 mg PO Q6HR PRN #10 tablet 01/08/21 Unknown Rx Mental Status Exam - Vital signs Last Vital Signs Temp 98.5 F 11/28/21 05:06 Pulse 101 H 11/28/21 05:06 Resp 18 11/28/21 05:48 BP 145/71 11/28/21 05:06 Pulse Ox 18 L 11/28/21 05:48 Results Result Diagrams: 11/27/21 23:58 11/27/21 23:58 Abnormal lab results 11/27/21 11/27/21 11/27/21 Range/Units 23:58 23:58 23:58 WBC 15.3 H (4.5-11.0) K/mm3 Hgb 14.6 H (10.1-14.3) gm/dl Hct 44.8 H (30.3-42.9) % Seg Neuts % (Manual) 78.0 H (40.0-70.0) % Seg Neutrophils # Man 11.9 H (1.8-7.7) K/mm3 Sodium 148 H D (137-145) mmol/L Carbon Dioxide 21 L (22-30) mmol/L BUN 18 H (7-17) mg/dL Glucose 107 H (65-100) mg/dL Salicylates < 0.3 L (2.8-20.0) mg/dL Acetaminophen (10.0-30.0) ug/mL 11/27/21 Range/Units 23:58 WBC (4.5-11.0) K/mm3 Hgb (10.1-14.3) gm/dl Hct (30.3-42.9) % Seg Neuts % (Manual) (40.0-70.0) % Seg Neutrophils # Man (1.8-7.7) K/mm3 Sodium (137-145) mmol/L Carbon Dioxide (22-30) mmol/L BUN (7-17) mg/dL Glucose (65-100) mg/dL Salicylates (2.8-20.0) mg/dL Acetaminophen 5.0 L (10.0-30.0) ug/mL All other labs normal.
[2021-11-28] MEDS ORDERED: LORazepam 2 MG/ML VIAL IM PRN (11:52)
[2021-11-28] MEDS ORDERED: ACETAMINOPHEN 325 MG TAB PO PRN (11:52)
[2021-11-28] MEDS ORDERED: ONDANSETRON 4 MG ODT TAB PO PRN (11:52)
[2021-11-28] MEDS ORDERED: BENZONATATE 100 MG CAP PO PRN (11:52)
[2021-11-28] MEDS ORDERED: IBUPROFEN 600 MG TAB PO PRN (11:52)
[2021-11-28] MEDS ORDERED: diphenhydrAMINE 25 MG CAP PO PRN (11:52)
--- NOTE | 2021-11-28 11:54 | Event Note ---
Date: 11/28/21 The patient was evaluated in the emergency department for symptoms described in the history of present illness. He/she was evaluated in the context of the global COVID-19 pandemic, which necessitated consideration that the patient might be at risk for infection with the virus that causes COVID-19. Institutional protocols and algorithms that pertain to the evaluation of patients at risk for COVID-19 are in a state of rapid change based on information released by regulatory bodies including the CDC and federal and state organizations. These policies and algorithms were followed during the patient's care in the emergency department. Please note that these policies, procedures and recommendations changed on a rapid basis. Laboratory studies, vital signs, nursing documentation, ER documentation, and psychiatric documentation are reviewed and appreciated. Nursing team reports no acute events this morning or concerns. The patient is awake and ambulating and does not appear to be in any acute distress. The patient was deemed medically suitable for psychiatric disposition and placement during her initial ER evaluation. The patient continues to remain medically suitable for psychiatric placement and disposition. sHe is currently pending psychiatric placement. A 1013 is recommended. I have ordered, written and filled this out. Leukocytosis is likely a stress reaction. Patient had 2 basic metabolic panels performed yesterday. Initial BMP within normal limits, second suggestive of mild dehydration and/or hyperventilation. Patient tolerating oral feeds at this time, and serum toxicology studies are unremarkable x2 within the past 48 hours.
[2021-11-29] MEDS: ZIPRASIDONE MESYLATE 20 MG VIAL IM PRN (01:25)
[2021-11-29 08:22] LABS: Basophils # (Auto) 0.1 K/mm3 (0.0-0.1); Basophils % (Auto) 0.7 % (0.0-1.8); Eosinophils # (Auto) 0.2 K/mm3 (0.0-0.4); Eosinophils % (Auto) 1.3 % (0.0-4.3); Hemoglobin 15.3 gm/dl (10.1-14.3); Lymphocytes # (Auto) 2.7 K/mm3 (1.2-5.4); Lymphocytes % (Auto) 20.4 % (13.4-35.0); Mean Corpuscular HGB Conc 33 % (30-34); Mean Corpuscular Volume 90 fl (79-97); Monocytes # (Auto) 0.6 K/mm3 (0.0-0.8); Monocytes % (Auto) 4.7 % (0.0-7.3); Platelet Count 210 K/mm3 (140-440); Red Cell Distribution Width 13.8 % (13.2-15.2)
--- NOTE | 2021-11-29 10:59 | Progress Note ---
Subjective - Reason for Consult Consult date: 11/29/21 Reason for consult: Psychosis - Chief Complaint Chief complaint: The patient was seen this morning. She states she is ok. The patient continues to be disorganized and talkative " apparently my family ." REVIEW OF SYSTEMS Constitutional: Negative for weight loss ENT: Negative for stridor Respiratory: Negative for cough or hemoptysis All other systems reviewed and are negative MENTAL STATUS EXAMINATION General Appearance and Behavior: Age appropriate, good hygiene, wearing appropriate clothes, good eye contact, cooperative polite with questioning. Cooperation: Participating Psychomotor Behavior: abnormal Mood: anxious/ agitated Affect and affective range: congruent with mood Thought Process: Tangential Thought Content: flight of ideas and disorganized thoughts Speech: Normal volume, Regular rate and rhythm Intellectual Functioning: Average Suicidal Ideation: Denies Homicidal Ideation: Denies Hallucinations: Denies Impulse Control: Unimpaired Insight and Judgment: Limited insight and judgment Memory: Attention: Divided Orientation: Alert, oriented Assessment and Plan (1) Bipolar (2) Current Visit: Yes Status: Acute RECOMMENDATIONS 1013 continue home meds. Start Depakote Dr 250mg po BID Continue Zyprexa 10mg po BID. Risks, benefits and alternatives of medications discussed with the patient, questions answered and consent obtained from patient. PSYCHOTHERAPY: Supportive psychotherapy provided MEDICAL: Per primary team DELIRIUM PRECAUTIONS: Please re-orient patient frequently, keep lights on during the day, and minimize benzodiazepines and opiates as these medications could worsen patient's confusion. 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 FOLLOW-UP: Will follow. Thank you for the consult. Please contact with any questions and/or concerns. Medications and Allergies Mental Status Exam - Vital signs Last Vital Signs Temp 98.8 F 11/29/21 09:26 Pulse 100 H 11/29/21 09:26 Resp 20 11/29/21 09:26 BP 159/78 11/29/21 09:26 Pulse Ox 98 11/29/21 09:26
[2021-11-29] MEDS: DIVALPROEX DR 250 MG TAB PO SCH ×2 (11:11→22:20)
[2021-11-29] MEDS ORDERED: atenoloL 25 MG TAB PO ONE (12:51)
--- NOTE | 2021-11-29 12:53 | Emergency Department Report ---
Blank Doc - Documentation Documentation: Chart reviewed 51-year-old female with new onset psychosis currently on 1013 receiving p.o. medications. Patient compliant with medications. Patient takes atenolol at home. I have added atenolol 25 mg daily to her medications for blood pressure heart rate control since patient is chronically on this medication. Acceptance pending
[2021-11-30] MEDS ORDERED: WATER FOR INJ Sterile (PF) 10 ML ONE (00:08)
[2021-11-30] MEDS ORDERED: cloNIDine 0.1 MG TAB PO ONE (09:33)
[2021-11-30] MEDS: DIVALPROEX DR 250 MG TAB PO SCH ×2 (09:47→22:17)
[2021-11-30] MEDS: atenoloL 25 MG TAB PO SCH (09:47)
--- NOTE | 2021-11-30 11:10 | Progress Note ---
Subjective - Reason for Consult Consult date: 11/30/21 Reason for consult: psychosis - Chief Complaint Chief complaint: The patient was seen this morning. She states she is ok. The patient continues to be disorganized and talkative " my sister is here in the box." REVIEW OF SYSTEMS Constitutional: Negative for weight loss ENT: Negative for stridor Respiratory: Negative for cough or hemoptysis All other systems reviewed and are negative MENTAL STATUS EXAMINATION General Appearance and Behavior: Age appropriate, good hygiene, wearing appropriate clothes, good eye contact, cooperative polite with questioning. Cooperation: Participating Psychomotor Behavior: abnormal Mood: anxious/ agitated Affect and affective range: congruent with mood Thought Process: Tangential Thought Content: flight of ideas and disorganized thoughts Speech: Normal volume, Regular rate and rhythm Intellectual Functioning: Average Suicidal Ideation: Denies Homicidal Ideation: Denies Hallucinations: Denies Impulse Control: Unimpaired Insight and Judgment: Limited insight and judgment Memory: Attention: Divided Orientation: Alert, oriented Assessment and Plan (1) Bipolar (2) Current Visit: Yes Status: Acute RECOMMENDATIONS 1013 continue home meds. Start Depakote Dr 250mg po BID Continue Zyprexa 10mg po BID. Risks, benefits and alternatives of medications discussed with the patient, questions answered and consent obtained from patient. PSYCHOTHERAPY: Supportive psychotherapy provided MEDICAL: Per primary team DELIRIUM PRECAUTIONS: Please re-orient patient frequently, keep lights on during the day, and minimize benzodiazepines and opiates as these medications could worsen patient's confusion. 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 FOLLOW-UP: Will follow. Thank you for the consult. Please contact with any questions and/or concerns. Medications and Allergies Mental Status Exam - Vital signs Last Vital Signs Temp 97.7 F 11/30/21 09:25 Pulse 138 H 11/30/21 09:47 Resp 20 11/30/21 09:25 BP 209/101 11/30/21 09:47 Pulse Ox 96 11/30/21 10:39
--- NOTE | 2021-11-30 13:08 | Event Note ---
No current medical issues. Awaiting placement to inpatient psychiatric facility according to mental health team recommendation.
[2021-12-01] MEDS: ZIPRASIDONE MESYLATE 20 MG VIAL IM PRN (02:42)
--- NOTE | 2021-12-01 09:42 | Progress Note ---
Subjective - Reason for Consult Consult date: 12/01/21 Reason for consult: psychosis - Chief Complaint Chief complaint: The patient was seen this morning. She states she is ok. The patient continues to be disorganized, she is disrobed, exposing her breasts. Denies suicidal/homicidal ideation and denies hallucinations. REVIEW OF SYSTEMS Constitutional: Negative for weight loss ENT: Negative for stridor Respiratory: Negative for cough or hemoptysis All other systems reviewed and are negative MENTAL STATUS EXAMINATION General Appearance and Behavior: Age appropriate, good hygiene, wearing appropriate clothes, good eye contact, cooperative polite with questioning. Cooperation: Participating Psychomotor Behavior: abnormal Mood: anxious Affect and affective range: congruent with mood Thought Process: circumstantial Thought Content: flight of ideas and disorganized thoughts Speech: Normal volume, Regular rate and rhythm Intellectual Functioning: Average Suicidal Ideation: Denies Homicidal Ideation: Denies Hallucinations: Denies Impulse Control: Unimpaired Insight and Judgment: Limited insight and judgment Memory: Attention: Divided Orientation: Alert, oriented Assessment and Plan (1) Bipolar (2) Current Visit: Yes Status: Acute RECOMMENDATIONS 1013 continue home meds. Start Depakote Dr 250mg po BID Continue Zyprexa 10mg po BID. Risks, benefits and alternatives of medications discussed with the patient, questions answered and consent obtained from patient. PSYCHOTHERAPY: Supportive psychotherapy provided MEDICAL: Per primary team DELIRIUM PRECAUTIONS: Please re-orient patient frequently, keep lights on during the day, and minimize benzodiazepines and opiates as these medications could worsen patient's confusion. 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 FOLLOW-UP: Will follow. Thank you for the consult. Please contact with any questions and/or concerns. Medications and Allergies Mental Status Exam - Vital signs Last Vital Signs Temp 98.5 F 11/30/21 22:00 Pulse 92 H 11/30/21 22:00 Resp 20 11/30/21 22:00 BP 148/68 11/30/21 22:00 Pulse Ox 96 11/30/21 22:00
[2021-12-01] MEDS: DIVALPROEX DR 250 MG TAB PO SCH (10:03)
--- NOTE | 2021-12-01 11:37 | Event Note ---
Awaiting placement by psychiatric team. Patient is medically clear for psychiatric care
--- NOTE | 2021-12-02 09:15 | Progress Note ---
Subjective - Reason for Consult Consult date: 12/02/21 Reason for consult: hallucinations - Chief Complaint Chief complaint: The patient was seen this morning. She is a/o x 3. She says she started having hallucinations, "it seems after I got the flu about 3 weeks ago." The patient says "I feel great now with the exception that I'm hurting." She says "I live with my sister, we got a good relationship for the most part. I take care of her." The patient denies SI/HI. She says "no, never." She also denies hallucinations of any kind. The patient says she works from home for [employer]. REVIEW OF SYSTEMS Constitutional: Negative for weight loss ENT: Negative for stridor Respiratory: Negative for cough or hemoptysis All other systems reviewed and are negative MENTAL STATUS EXAMINATION General Appearance and Behavior: Age appropriate, good hygiene, wearing appropriate clothes, good eye contact, cooperative polite with questioning. Cooperation: Participating Psychomotor Behavior: normal Mood: great Affect and affective range: congruent with mood Thought Process: goal directed Thought Content: None Speech: Normal volume, Regular rate and rhythm Suicidal Ideation: Denies Homicidal Ideation: Denies Hallucinations: Denies Impulse Control: Unimpaired Insight and Judgment: Limited insight and judgment Memory: Normal Attention: Divided Orientation: Alert, oriented Assessment and Plan (1) Bipolar RECOMMENDATIONS D/c [address] 250mg po BID Continue Zyprexa 10mg po BID. Risks, benefits and alternatives of medications discussed with the patient, questions answered and consent obtained from patient. PSYCHOTHERAPY: Supportive psychotherapy provided MEDICAL: Per primary team DELIRIUM PRECAUTIONS: Please re-orient patient frequently, keep lights on during the day, and minimize benzodiazepines and opiates as these medications could worsen patient's confusion. 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 FOLLOW-UP: Will follow. Thank you for the consult. Please contact with any questions and/or concerns. Medications and Allergies Mental Status Exam - Vital signs Last Vital Signs Temp 98.4 F 12/02/21 02:29 Pulse 113 H 12/02/21 02:29 Resp 18 12/02/21 02:29 BP 148/74 12/02/21 02:29 Pulse Ox 95 12/02/21 02:29
[2021-12-02 10:24] VITALS: BP 161/91
[2021-12-02] MEDS: DIVALPROEX DR 250 MG TAB PO SCH (11:43)
[2021-12-02] MEDS: atenoloL 25 MG TAB PO SCH (11:43)
== END 2021-12-02 12:08 | disposition home or self-care (01) ==
LOC: EEVIPCON 23:38 → ED 23:38
DX: F39 Unspecified mood [affective] disorder (principal); R44.1 Visual hallucinations; Z20.822 Contact with and (suspected) exposure to COVID-19; I10 Essential (primary) hypertension; M19.90 Unspecified osteoarthritis, unspecified site; Z79.899 Other long term (current) drug therapy
CPT/HCPCS: 36415; 80048; 80307; 81001; 84295; 85007; 85025; 96372; 96374; 99284; J2060; J3486; U0003; 80320; J3490; G0480; Q0162

== ENCOUNTER 2022-01-15 11:44 | Emergency (ER) | payer SELFPAY ==
[2022-01-15 13:10] LABS: Basophils # (Auto) 0.1 K/mm3 (0.0-0.1); Eosinophils # (Auto) 0.1 K/mm3 (0.0-0.4); Eosinophils % (Auto) 1.4 % (0.0-4.3); Hematocrit 44.2 % (30.3-42.9); Hemoglobin 15.2 gm/dl (10.1-14.3); Lymphocytes # (Auto) 2.2 K/mm3 (1.2-5.4); Lymphocytes % (Auto) 25.9 % (13.4-35.0); Mean Corpuscular HGB Conc 34 % (30-34); Mean Corpuscular Volume 88 fl (79-97); Monocytes # (Auto) 0.4 K/mm3 (0.0-0.8); Monocytes % (Auto) 4.7 % (0.0-7.3); Platelet Count 222 K/mm3 (140-440); Red Blood Count 5.01 M/mm3 (3.65-5.03); Red Cell Distribution Width 13.3 % (13.2-15.2)
[2022-01-15 13:29] LABS: Alanine Aminotransferase 122 units/L (7-56); Albumin 4.4 g/dL (3.9-5); Blood Urea Nitrogen 18 mg/dL (7-17); Calcium 9.9 mg/dL (8.4-10.2); Hemolysis Index 16
[2022-01-15 13:30] LABS: BUN/Creatinine Ratio 30
[2022-01-15] MEDS ORDERED: SODIUM CHLORIDE 0.9% 1000 ML 1,000 ML IV ONE (13:37)
[2022-01-15] MEDS ORDERED: ONDANSETRON 4 MG/2 ML INJ IV ONE (13:37)
[2022-01-15] MEDS ORDERED: MORPHINE 4 MG/1 ML INJ IV ONE (13:37)
[2022-01-15 13:40] LABS: Bilirubin,Urine NEG (Negative); Blood,Urine MOD (Negative); Color,Urine Yellow (Yellow); Mucus,Urine FEW /HPF; Protein,Urine <15 mg/dL mg/dL (Negative); Urobilinogen,Urine < 2.0 mg/dL (<2.0)
--- NOTE | 2022-01-15 14:35 | Emergency Department Report ---
<TRINO SCHMIDT - Last Filed: 01/15/22 14:55> ED Abdominal Pain HPI - General Chief Complaint: Abdominal Pain Stated Complaint: PAIN RT SIDE/FEVER/B/P Time Seen by Provider: 01/15/22 13:35 Source: patient Mode of arrival: Ambulatory Limitations: No Limitations - History of Present Illness Initial Comments: This is a 51-year-old female nontoxic, well nourished in appearance, no acute signs of distress presents to the ED with c/o of nausea and vomiting and abdominal pain several days. Patient describes vomiting as food content and yellow gastric acid. Patient describes abdominal pain as cramping and aching with level of 8/10 to right upper abdomen with radiation to right flank area. Patient denies chest pain, short of breath, fever, hemoptysis, blood in stool, chills, headache, stiff neck, numbness or tingling. Patient denies any diarrhea or constipation. Denies any blood in stool. Patient denies any recent travels. Patient stated allergies to latex. MD Complaint: abdominal pain -: days(s) Location: RUQ Radiation: R flank Migration to: no migration Severity: mild Severity scale (0 -10): 8 Quality: cramping, aching Consistency: constant Improves With: nothing Worsens With: nothing Associated Symptoms: nausea, vomiting. denies: diarrhea, fever, chills, constipation, dysuria, hematemesis, hematochezia, melena, hematuria, anorexia, syncope - Related Data Previous Rx's Medication Instructions Recorded Last Taken Type Ibuprofen [Motrin 800 MG tab] 800 mg PO Q8HR PRN #20 tablet 07/23/16 Unknown Rx Azithromycin [Zithromax Z-ELAINE] 250 mg PO DAILY #6 tablet 10/07/18 Unknown Rx Benzonatate [Tessalon Perle] 100 mg PO Q8H PRN #20 capsule 10/07/18 Unknown Rx Ibuprofen [Motrin] 600 mg PO Q8H PRN #20 tablet 10/07/18 Unknown Rx Prednisone [predniSONE 10 mg 10 mg PO .TAPER #1 tab.ds.pk 10/07/18 Unknown Rx (6-Day Pack, 21 Tabs)] Clindamycin [Clindamycin CAP] 300 mg PO Q8H 7 Days #21 cap 02/19/19 Unknown Rx Naproxen [Naprosyn] 500 mg PO BID #20 tablet 02/19/19 Unknown Rx traMADoL [Ultram] 50 mg PO Q6HR PRN #7 tablet 02/19/19 Unknown Rx Naproxen 500 mg PO Q12H PRN #12 tablet 05/02/20 Unknown Rx Naproxen [EC-Naprosyn] 500 mg PO BID PRN #20 tablet.dr 01/08/21 Unknown Rx traMADoL [Ultram 50 MG tab] 50 mg PO Q6HR PRN #10 tablet 01/08/[address] [DepaKOTE ] 250 mg PO BID #60 tablet 12/02/21 Unknown Rx OLANZapine [Olanzapine] 10 mg PO BID #60 12/02/21 Unknown Rx Dicyclomine [Bentyl] 20 mg PO TID PRN #12 tablet 01/15/22 Unknown Rx Ondansetron [Zofran Odt] 4 mg PO Q8HR PRN #12 tab.rapdis 01/15/22 Unknown Rx Allergies Allergy/AdvReac Type Severity Reaction Status Date / Time latex Allergy Rash Verified 05/02/20 13:00 ED Review of Systems Comment: All other systems reviewed and negative Constitutional: denies: chills, fever Eyes: denies: eye pain, eye discharge, vision change ENT: denies: ear pain, throat pain Respiratory: denies: cough, shortness of breath, wheezing Cardiovascular: denies: chest pain, palpitations Endocrine: no symptoms reported Gastrointestinal: abdominal pain, nausea, vomiting. denies: diarrhea, constipation, hematemesis, melena, hematochezia Genitourinary: denies: urgency, dysuria, discharge Musculoskeletal: denies: back pain, joint swelling, arthralgia Skin: denies: rash, lesions Neurological: denies: headache, weakness, paresthesias Psychiatric: denies: anxiety, depression Hematological/Lymphatic: denies: easy bleeding, easy bruising ED Past Medical Hx - Past Medical History Previous Medical History?: Yes Hx Hypertension: Yes Hx CVA: No Hx Heart Attack/AMI: No Hx Congestive Heart Failure: No Hx Diabetes: No Hx Deep Vein Thrombosis: No Hx Pulmonary Embolism: No Hx GERD: No Hx Liver Disease: No Hx Renal Disease: No Hx Sickle Cell Disease: No Hx Arthritis: Yes Hx Headaches / Migraines: No Hx Seizures: No Hx Kidney Stones: No Hx Psychiatric Treatment: No Hx Asthma: No Hx COPD: No Hx Tuberculosis: No Hx Dementia: No Hx HIV: No Additional medical history: back pain,right knee pain - Surgical History Past Surgical History?: Yes Hx Coronary Stent: No Hx Open Heart Surgery: No Hx Pacemaker: No Hx Internal Defibrillator: No Hx Cholecystectomy: No Hx Appendectomy: No Hx Breast Surgery: No Additional Surgical History: 1991 - Social History Smoking Status: Current Every Day Smoker Substance Use Type: Alcohol - Medications Home Medications: Home Medications Medication Instructions Recorded Confirmed Last Taken Type Ibuprofen [Motrin 800 MG tab] 800 mg PO Q8HR PRN #20 tablet 07/23/16 Unknown Rx Azithromycin [Zithromax Z-ELAINE] 250 mg PO DAILY #6 tablet 10/07/18 Unknown Rx Benzonatate [Tessalon Perle] 100 mg PO Q8H PRN #20 capsule 10/07/18 Unknown Rx Ibuprofen [Motrin] 600 mg PO Q8H PRN #20 tablet 10/07/18 Unknown Rx Prednisone [predniSONE 10 mg 10 mg PO .TAPER #1 tab.ds.pk 10/07/18 Unknown Rx (6-Day Pack, 21 Tabs)] Clindamycin [Clindamycin CAP] 300 mg PO Q8H 7 Days #21 cap 02/19/19 Unknown Rx Naproxen [Naprosyn] 500 mg PO BID #20 tablet 02/19/19 Unknown Rx traMADoL [Ultram] 50 mg PO Q6HR PRN #7 tablet 02/19/19 Unknown Rx Naproxen 500 mg PO Q12H PRN #12 tablet 05/02/20 Unknown Rx Naproxen [EC-Naprosyn] 500 mg PO BID PRN #20 tablet.dr 01/08/21 Unknown Rx traMADoL [Ultram 50 MG tab] 50 mg PO Q6HR PRN #10 tablet 01/08/[address] [Sue LAST] 250 mg PO BID #60 tablet 12/02/21 Unknown Rx OLANZapine [Olanzapine] 10 mg PO BID #60 12/02/21 Unknown Rx Dicyclomine [Bentyl] 20 mg PO TID PRN #12 tablet 01/15/22 Unknown Rx Ondansetron [Zofran Odt] 4 mg PO Q8HR PRN #12 tab.rapdis 01/15/22 Unknown Rx ED Physical Exam - General Limitations: No Limitations General appearance: alert, in no apparent distress - Head Head exam: Present: atraumatic, normocephalic - Eye Eye exam: Present: normal appearance - Neck Neck exam: Present: normal inspection, full ROM. Absent: lymphadenopathy - Respiratory Respiratory exam: Present: normal lung sounds bilaterally. Absent: respiratory distress, wheezes, rales, rhonchi, stridor, chest wall tenderness, accessory muscle use, decreased breath sounds, prolonged expiratory - Cardiovascular Cardiovascular Exam: Present: regular rate, normal rhythm, normal heart sounds. Absent: bradycardia, tachycardia, irregular rhythm, systolic murmur, diastolic murmur, rubs, gallop - GI/Abdominal GI/Abdominal exam: Present: soft, tenderness (RUQ), normal bowel sounds. Absent: distended, guarding, rebound, rigid - Extremities Exam Extremities exam: Present: full ROM - Back Exam Back exam: Present: normal inspection, full ROM. Absent: tenderness, CVA tenderness (R), CVA tenderness (L), muscle spasm, paraspinal tenderness, vertebral tenderness, rash noted - Neurological Exam Neurological exam: Present: alert, oriented X3, normal gait - Psychiatric Psychiatric exam: Present: normal affect, normal mood - Skin Skin exam: Present: warm, dry, intact, normal color. Absent: rash ED Course - Reevaluation(s) Reevaluation #1: 01/15/22 14:36 Patient is speaking in full sentences with no signs of distress noted. - Consultations Consultation #1: 01/15/22 14:58 At this time patient is signed out for further evaluation, treatment and appropriate disposition by LUCERO Almonte. ED Medical Decision Making - Lab Data Result diagrams: 01/15/22 12:47 01/15/22 12:47 Lab Results 01/15/22 01/15/22 01/15/22 Range/Units 12:47 12:47 12:59 WBC 8.4 (4.5-11.0) K/mm3 RBC 5.01 (3.65-5.03) M/mm3 Hgb 15.2 H (10.1-14.3) gm/dl Hct 44.2 H (30.3-42.9) % MCV 88 (79-97) fl MCH 30 (28-32) pg MCHC 34 (30-34) % RDW 13.3 (13.2-15.2) % Plt Count 222 (140-440) K/mm3 Lymph % (Auto) 25.9 (13.4-35.0) % [place] % (Auto) 4.7 (0.0-7.3) % Eos % (Auto) 1.4 (0.0-4.3) % Baso % (Auto) 1.0 (0.0-1.8) % Lymph # (Auto) 2.2 (1.2-5.4) K/mm3 [place] # (Auto) 0.4 (0.0-0.8) K/mm3 Eos # (Auto) 0.1 (0.0-0.4) K/mm3 Baso # (Auto) 0.1 (0.0-0.1) K/mm3 Seg Neutrophils % 67.0 (40.0-70.0) % Seg Neutrophils # 5.7 (1.8-7.7) K/mm3 Sodium 138 (137-145) mmol/L Potassium 4.7 (3.6-5.0) mmol/L Chloride 100.9 (98-107) mmol/L Carbon Dioxide 24 (22-30) mmol/L Anion Gap 18 mmol/L BUN 18 H (7-17) mg/dL Creatinine 0.6 (0.6-1.2) mg/dL Estimated GFR > 60 ml/min BUN/Creatinine Ratio 30 % Glucose 98 (65-100) mg/dL Calcium 9.9 (8.4-10.2) mg/dL Total Bilirubin 0.50 (0.1-1.2) mg/dL AST 61 H (5-40) units/L ALT 122 H (7-56) units/L Alkaline Phosphatase 110 (35-129) units/L Total Protein 7.3 (6.3-8.2) g/dL Albumin 4.4 (3.9-5) g/dL Albumin/Globulin Ratio 1.5 % Lipase 41 (13-60) units/L Urine Color Yellow (Yellow) Urine Turbidity Slightly-cloudy (Clear) Urine pH 6.0 (5.0-7.0) Ur Specific [place] 1.013 (1.003-1.030) Urine Protein <15 mg/dl (Negative) mg/dL Urine Glucose (UA) Neg (Negative) mg/dL Urine Ketones Neg (Negative) mg/dL Urine Blood Mod (Negative) Urine Nitrite Neg (Negative) Urine Bilirubin Neg (Negative) Urine Urobilinogen < 2.0 (<2.0) mg/dL Ur Leukocyte Esterase Neg (Negative) Urine WBC (Auto) 5.0 (0.0-6.0) /HPF Urine RBC (Auto) 2.0 (0.0-6.0) /HPF U Epithel Cells (Auto) 8.0 (0-13.0) /HPF Urine Mucus Few /HPF - Radiology Data [facility] [address] [place] [address] Ultrasound Report Signed Patient: DILAN COCHRAN MR#: [id number] : 1970 Acct:[id number] Age/Sex: 51 / F ADM Date: 01/15/22 Loc: ED Attending Dr: Ordering Physician: TRINO SCHMIDT NP Date of Service: 01/15/22 Procedure(s): US abdomen complete Accession Number(s): [id number] cc: TRINO SCHMIDT NP ULTRASOUND ABDOMEN, COMPLETE INDICATION: abd pain with n/v COMPARISON: None available LIMITATIONS: None FINDINGS: Pancreas: Visualized portions show no significant abnormalities. Abdominal Aorta: No significant abnormalities. IVC: Normal Liver: Normal Gallbladder: Normal Bile ducts: Normal. Common Bile Duct measures 2 mm. Right Kidney: Normal Left Kidney: Normal Spleen: Normal Free fluid: None Additional Findings: None IMPRESSION: No acute abnormalities are seen. Signer Name: Alli Flores MD Signed: 01/15/2022 2:46 PM Workstation Name: [id number] Transcribed By: GJ Dictated By: Alli Flores MD Electronically Authenticated By: Alli Flores MD Signed Date/Time: 01/15/221445 DD/ 45 TD/TT: - Medical Decision Making This is a 51-year-old female that presents with abdominal pain. Patient is stable and was examined by me. Patient receied medical treatment in the ED. currently patient stated pain is free. Ultrasound abdomen has been obtained that does not show any abnormalities. A CT scan of abdomen with contrast obtained and pending. At this time patient is signed out for further evaluation, treatment and appropriate disposition by Randi Morgan. ED Disposition Clinical Impression: Kidney stones Liver cirrhosis Qualifiers: Hepatic cirrhosis type: unspecified hepatic cirrhosis Ascites presence: without ascites Qualified Code(s): K74.60 - Unspecified cirrhosis of liver Disposition: HOME / SELF CARE / HOMELESS Condition: Stable Instructions: Low-Purine Eating Plan, Kidney Stones, [id number], Abdominal Pain (ED) Additional Instructions: Follow-up with GI and urology for further evaluation and management. Return to the emergency department for any concerning symptoms. Prescriptions: Dicyclomine [Bentyl] 20 mg PO TID PRN #12 tablet PRN Reason: abdominal pain Ondansetron [Zofran Odt] 4 mg PO Q8HR PRN #12 tab.rapdis PRN Reason: Nausea Referrals: CHUCK MILLER MD [Primary Care Provider] - 3-5 Days HANNA MOREL MD [Staff Physician] - 3-5 Days ZARINA RAMON MD [Staff Physician] - 3-5 Days <RANDI RIVERA - Last Filed: 01/15/22 22:06> ED Review of Systems ROS: Stated complaint: PAIN RT SIDE/FEVER/B/P Other details as noted in HPI ED Course Vital Signs 01/15/22 01/15/22 12:06 17:30 Temperature 98.4 F 97.3 F L Pulse Rate 86 82 Respiratory 20 16 Rate Blood Pressure 165/87 Blood Pressure 170/86 [Right] O2 Sat by Pulse 99 98 Oximetry ED Medical Decision Making - Lab Data Result diagrams: 01/15/22 12:47 01/15/22 12:47 - Radiology Data CT abdomen and pelvis: FINDINGS: Lung bases clear. No pneumoperitoneum. Slightly cirrhotic appearance of liver without obvious focal lesion. Spleen not enlarged. No definite varices. Gallbladder distended without obvious calculi. Mild biliary prominence in extrahepatic tree with common bile duct measuring 8 mm. This extends to the ampulla without obvious source. No calculi are seen. No pancreatic abnormality. No pancreatic ductal dilatation. No inflammation. Bilateral nephrolithiasis noted, worse on right. In the upper right renal pelvis area 9 mm calculus is seen. No obvious obstructive change is seen in the collecting system. Right ureter is slightly prominent but shows no calculi. Urinary bladder shows no calculi or abnormality. No pelvic masses are seen. Mild colonic diverticulosis without obvious diverticulitis. Appendix normal. No evidence of bowel obstruction. Mild ward prominence seen in the upper abdomen. Small node with short axis diameter 7 mm noted in gastrohepatic ligament and upper paracaval and periaortic area show mild adenopathy with short axis diameter up to 9 mm. No other adenopathy is seen. IMPRESSION: 1. Evidence of mild cirrhosis without obvious portal hypertension 2. Mild biliary prominence without source seen 3. Bilateral nephrolithiasis without obstruction seen 4. Mild upper abdominal ward prominence. Recommend follow-up. - Medical Decision Making Patient continues to deny any abdominal pain nausea vomiting. CT of the abdomen without any acute abnormalities but did note that patient had mild cirrhosis of the liver along with bilateral nephrolithiasis. Patient will be discharged home with some medications for pain and nausea to follow-up with GI and urology for further evaluation and management. Results were discussed with patient and she verbalized understanding of and agreement with plan of care. No acute distress noted. Critical care attestation.: If time is entered above; I have spent that time in minutes in the direct care of this critically ill patient, excluding procedure time. ED Disposition Is pt being admited?: No Does the pt Need Aspirin: No Time of Disposition: 16:45
--- NOTE | 2022-01-15 14:51 | Ultrasound Report ---
ULTRASOUND ABDOMEN, COMPLETE INDICATION: abd pain with n/v COMPARISON: None available LIMITATIONS: None FINDINGS: Pancreas: Visualized portions show no significant abnormalities. Abdominal Aorta: No significant abnormalities. IVC: Normal Liver: Normal Gallbladder: Normal Bile ducts: Normal. Common Bile Duct measures 2 mm. Right Kidney: Normal Left Kidney: Normal Spleen: Normal Free fluid: None Additional Findings: None IMPRESSION: No acute abnormalities are seen. Signer Name: Alli Flores MD Signed: 01/15/2022 2:46 PM Workstation Name: [id number]
--- NOTE | 2022-01-15 16:33 | Cat Scan Report ---
CT ABDOMEN AND PELVIS WITH CONTRAST INDICATION: abd pain with n/v CONTRAST: 100 cc Omnipaque 300 IV COMPARISON: None available. All CT scans at this location are performed using CT dose reduction for ALARA by means of automated e xposure control. NOTE: Resolution is decreased and artifact is introduced by the patient's size. FINDINGS: Lung bases clear. No pneumoperitoneum. Slightly cirrhotic appearance of liver without obvio us focal lesion. Spleen not enlarged. No definite varices. Gallbladder distended without obvious calc suraj. Mild biliary prominence in extrahepatic tree with common bile duct measuring 8 mm. This extends to the ampulla without obvious source. No calculi are seen. No pancreatic abnormality. No pancreatic ductal dilatation. No inflammation. Bilateral nephrolithiasis noted, worse on right. In the upper right renal pelvis area 9 mm calculus i s seen. No obvious obstructive change is seen in the collecting system. Right ureter is slightly prom inent but shows no calculi. Urinary bladder shows no calculi or abnormality. No pelvic masses are see n. Mild colonic diverticulosis without obvious diverticulitis. Appendix normal. No evidence of bowel obs truction. Mild ward prominence seen in the upper abdomen. Small node with short axis diameter 7 mm noted in ga strohepatic ligament and upper paracaval and periaortic area show mild adenopathy with short axis pepe meter up to 9 mm. No other adenopathy is seen. IMPRESSION: 1. Evidence of mild cirrhosis without obvious portal hypertension 2. Mild biliary prominence without source seen 3. Bilateral nephrolithiasis without obstruction seen 4. Mild upper abdominal ward prominence. Recommend follow-up. Signer Name: Alli Flores MD Signed: 01/15/2022 4:28 PM Workstation Name: [id number]
[2022-01-15 17:37] VITALS: BP 170/86
== END 2022-01-15 17:37 | disposition home or self-care (01) ==
LOC: ED 11:44
DX: K74.60 Unspecified cirrhosis of liver (principal); N20.0 Calculus of kidney; I10 Essential (primary) hypertension; M19.90 Unspecified osteoarthritis, unspecified site; F17.200 Nicotine dependence, unspecified, uncomplicated; Z88.0 Allergy status to penicillin
CPT/HCPCS: 36415; 74177; 76700; 80053; 81001; 83690; 85025; 96361; 96374; 96375; 99284; J2270; J2405; J7030; Q9967; Q0162

== ENCOUNTER 2022-06-22 06:37 | Emergency (ER) | payer SELFPAY ==
[2022-06-22 06:59] VITALS: BP 153/100
[2022-06-22 07:42] LABS: Basophils # (Auto) 0.1 K/mm3 (0.0-0.1); Basophils % (Auto) 0.6 % (0.0-1.8); Eosinophils % (Auto) 0.3 % (0.0-4.3); Hemoglobin 16.8 gm/dl (10.1-14.3); Lymphocytes # (Auto) 2.7 K/mm3 (1.2-5.4); Lymphocytes % (Auto) 18.8 % (13.4-35.0); Mean Corpuscular HGB Conc 34 % (30-34); Mean Corpuscular Volume 88 fl (79-97); Monocytes # (Auto) 0.7 K/mm3 (0.0-0.8); Platelet Count 256 K/mm3 (140-440); Red Blood Count 5.57 M/mm3 (3.65-5.03); Red Cell Distribution Width 13.4 % (13.2-15.2)
[2022-06-22 08:05] LABS: Alanine Aminotransferase 77 units/L (7-56); Albumin 5.1 g/dL (3.9-5); Blood Urea Nitrogen 13 mg/dL (7-17); Calcium 10.7 mg/dL (8.4-10.2); Hemolysis Index 20
[2022-06-22 08:23] LABS: BUN/Creatinine Ratio 22; Bilirubin,Direct < 0.2 mg/dL (0-0.2)
--- NOTE | 2022-06-22 09:20 | XRay Report ---
ABDOMEN 2 VIEW(S) INDICATION / CLINICAL INFORMATION: Abdominal Pain. COMPARISON: None available. FINDINGS: TUBES / LINES: None. BOWEL GAS PATTERN: No significant abnormality. FREE AIR / EXTRALUMINAL GAS: None seen. ADDITIONAL FINDINGS: An approximate 1 cm stone overlies the expected position of the right renal pelv is. A 6 mm stone is identified overlying the superior right kidney shadow. There are 2 calcifications overlying the inferior pole of the right kidney measuring 3 mm and 5 mm. No obvious left nephrolithi asis on x-ray. IMPRESSION: Right nephrolithiasis as described. Signer Name: Bladimir Swanson Jr, MD Signed: 06/22/2022 9:16 AM Workstation Name: [id number]
== END 2022-06-22 19:02 | disposition left against medical advice (07) ==
LOC: ED 06:37
DX: R11.10 Vomiting, unspecified (principal); Z53.21 Procedure and treatment not carried out due to patient leaving prior to being seen by health care provider
CPT/HCPCS: 36415; 74019; 80048; 80076; 82150; 83690; 85025